=== PATIENT | female | born 1965 | race Caucasian/White ===

== ENCOUNTER 2021-12-07 11:15 | Inpatient (IN) | payer MEDICARE, OTHER ==
--- NOTE | 2021-12-07 11:44 | ED ---
General Adult HPI - General Chief complaint: Altered Mental Status Stated complaint: altered mental status Time Seen by Provider: 12/07/21 11:23 Source: EMS, RN notes reviewed, Caregiver Mode of arrival: EMS Limitations: no limitations - History of Present Illness Initial comments: Patient is a pleasant 56-year-old female presenting with caregiver with concerns for change in mental status. Symptoms started yesterday morning. Symptoms have progressively worsened since that time. Patient has baseline disability including being nonverbal. Patient normally is able to walk and be at herself as well as do sign language for her name and stating when she is hungry, otherwise limited. Patient is no longer able to any communication. Patient is not able to walk on her own. Patient did have a fall yesterday morning and had head CT done at [place] and was discharged following that. Symptoms have progressively worsened. Patient is nonverbal and provides no history at this time. 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 - Related Data Home Medications Medication Instructions Recorded Confirmed Atorvastatin Calcium [Lipitor] 20 mg PO HS 12/07/21 12/07/21 FLUoxetine HCL [PROzac] 40 mg PO DAILY 12/07/21 12/07/21 Haloperidol 1 mg PO BID PRN 12/07/21 12/07/21 Lactose-Reduced Food [Ensure 1 can PO DAILY 12/07/21 12/07/21 Original] clonazePAM 0.5 mg PO TID 12/07/21 12/07/21 polyethylene glycoL 3350 [Miralax] 17 gm PO HS 12/07/21 12/07/21 risperiDONE [RisperDAL] 1.5 mg PO DAILY 12/07/21 12/07/21 risperiDONE [RisperDAL] 3 mg PO HS 12/07/21 12/07/21 Allergies Allergy/AdvReac Type Severity Reaction Status Date / Time No Known Allergies Allergy Verified 12/07/21 12:45 Review of Systems ROS Statement: Those systems with pertinent positive or pertinent negative responses have been documented in the HPI. ROS Other: All systems not noted in ROS Statement are negative. 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 Does not follow commands.) Head exam: Present: atraumatic, normocephalic Eye exam: Present: normal appearance, PERRL ENT exam: Present: normal oropharynx Neck exam: Present: normal inspection. Absent: tenderness Respiratory exam: Present: normal lung sounds bilaterally Cardiovascular Exam: Present: regular rate, normal rhythm GI/Abdominal exam: Present: soft. Absent: tenderness Extremities exam: Present: normal inspection Neurological exam: Present: alert, altered Expanded Neurological exam: Present: protecting the airway, other (Limited exam. Does not follow commands. Strength testing is very limited) Speech: Present: total aphasia Motor strength exam: RUE: 2/1, LUE: 5, RLE: 2/1, LLE: 5 Eye Response: (4) open spontaneously Motor Response: (5) localizes to pain Verbal Response: (1) no verbal response Psychiatric exam: Present: flat affect Skin exam: Present: normal color Course Vital Signs 12/07/21 11:21 Temperature 98.5 F Pulse Rate 106 H Respiratory 18 Rate Blood Pressure 115/74 O2 Sat by Pulse 96 Oximetry - Reevaluation(s) Reevaluation #1: 12/07/21 13:06 Patient reevaluated. Ink Printer updated. Case was discussed with Dr. Fay who would like patient noted in stroke robot. He would also like CTA EKG Findings - EKG Comments: EKG Findings:: Sinus tachycardia rate 112. KS 1:30. QRS 90. QT 378. QTC 515. Right axis. RVH. Inferior T wave inversion. Medical Decision Making - Medical Decision Making Patient reevaluated and unchanged. Ink Printer updated. Case discussed with Dr. Price, who will admit covering hospital call. - Lab Data Result diagrams: 12/07/21 11:58 12/07/21 11:58 Lab Results 12/07/21 12/07/21 12/07/21 Range/Units 11:58 11:58 11:58 WBC 11.9 H (3.8-10.6) k/uL RBC 4.57 (3.80-5.40) m/uL Hgb 13.8 (11.4-16.0) gm/dL Hct 40.8 (34.0-46.0) % MCV 89.1 (80.0-100.0) fL MCH 30.1 (25.0-35.0) pg MCHC 33.8 (31.0-37.0) g/dL RDW 13.2 (11.5-15.5) % Plt Count 185 (150-450) k/uL MPV 7.1 Neutrophils % 86 % Lymphocytes % 5 % Monocytes % 8 % Eosinophils % 0 % Basophils % 0 % Neutrophils # 10.2 H (1.3-7.7) k/uL Lymphocytes # 0.6 L (1.0-4.8) k/uL Monocytes # 0.9 (0-1.0) k/uL Eosinophils # 0.0 (0-0.7) k/uL Basophils # 0.0 (0-0.2) k/uL PT 10.3 (9.0-12.0) sec INR 1.0 (<1.2) APTT 20.7 L (22.0-30.0) sec Sodium 136 L (137-145) mmol/L Potassium 3.3 L (3.5-5.1) mmol/L Chloride 106 (98-107) mmol/L Carbon Dioxide 25 (22-30) mmol/L Anion Gap 5 mmol/L BUN 12 (7-17) mg/dL Creatinine 0.45 L (0.52-1.04) mg/dL Est GFR (CKD-EPI)AfAm >90 (>60 ml/min/1.73 sqM) Est GFR (CKD-EPI)NonAf >90 (>60 ml/min/1.73 sqM) Glucose 105 H (74-99) mg/dL Calcium 8.9 (8.4-10.2) mg/dL Total Bilirubin 3.1 H (0.2-1.3) mg/dL AST 30 (14-36) U/L ALT 41 H (4-34) U/L Alkaline Phosphatase 75 (38-126) U/L Troponin I (0.000-0.034) ng/mL Total Protein 6.1 L (6.3-8.2) g/dL Albumin 3.4 L (3.5-5.0) g/dL 12/07/21 Range/Units 11:58 WBC (3.8-10.6) k/uL RBC (3.80-5.40) m/uL Hgb (11.4-16.0) gm/dL Hct (34.0-46.0) % MCV (80.0-100.0) fL MCH (25.0-35.0) pg MCHC (31.0-37.0) g/dL RDW (11.5-15.5) % Plt Count (150-450) k/uL MPV Neutrophils % % Lymphocytes % % Monocytes % % Eosinophils % % Basophils % % Neutrophils # (1.3-7.7) k/uL Lymphocytes # (1.0-4.8) k/uL Monocytes # (0-1.0) k/uL Eosinophils # (0-0.7) k/uL Basophils # (0-0.2) k/uL PT (9.0-12.0) sec INR (<1.2) APTT (22.0-30.0) sec Sodium (137-145) mmol/L Potassium (3.5-5.1) mmol/L Chloride (98-107) mmol/L Carbon Dioxide (22-30) mmol/L Anion Gap mmol/L BUN (7-17) mg/dL Creatinine (0.52-1.04) mg/dL Est GFR (CKD-EPI)AfAm (>60 ml/min/1.73 sqM) Est GFR (CKD-EPI)NonAf (>60 ml/min/1.73 sqM) Glucose (74-99) mg/dL Calcium (8.4-10.2) mg/dL Total Bilirubin (0.2-1.3) mg/dL AST (14-36) U/L ALT (4-34) U/L Alkaline Phosphatase (38-126) U/L Troponin I <0.012 (0.000-0.034) ng/mL Total Protein (6.3-8.2) g/dL Albumin (3.5-5.0) g/dL - Radiology Data Radiology results: image reviewed (CT brain is discussed with radiologist shows concern for left MCA thrombus and subacute infarct. Chest x-ray shows cardiac megaly with mild central vascular congestion.) Disposition Clinical Impression: CVA (cerebral vascular accident) Disposition: ADMITTED IP TO THIS HOSP Is patient prescribed a controlled substance at d/c from ED?: No Referrals: Jenelle Forrest DO [Primary Care Provider] - 1-2 days Decision Time: 13:40
--- NOTE | 2021-12-07 12:35 | XR ---
EXAMINATION TYPE: XR chest 1V portable DATE OF EXAM: 12/07/2021 COMPARISON: NONE HISTORY: Altered mental status and weakness. TECHNIQUE: Single frontal view of the chest is obtained. FINDINGS: Cardiac silhouette size is mildly enlarged. No suspicious focal airspace opacity, pleural effusion, or pneumothorax seen bilaterally. Cannot exclude mild central vascular congestion. Underlyi ng scoliotic curvature or positioning is noted. IMPRESSION: Mild cardiomegaly with perhaps mild central vascular congestion. Correlate clinically.
[2021-12-07 12:36] LABS: Basophils % (A) 0 %; Eosinophils % (A) 0 %; HCT 40.8 % (34.0-46.0); HGB 13.8 gm/dL (11.4-16.0); Lymphocytes # (A) 0.6 k/uL (1.0-4.8); Lymphocytes % (A) 5 %; MCH 30.1 pg (25.0-35.0); MCHC 33.8 g/dL (31.0-37.0); MCV 89.1 fL (80.0-100.0); Mean Platelet Volume 7.1; Monocytes # (A) 0.9 k/uL (0-1.0); Monocytes % (A) 8 %; Neutrophils # (A) 10.2 k/uL (1.3-7.7); Neutrophils % (A) 86 %; Platelet Count 185 k/uL (150-450); RBC 4.57 m/uL (3.80-5.40); RDW 13.2 % (11.5-15.5); WBC 11.9 k/uL (3.8-10.6)
[2021-12-07 12:38] LABS: ALT 41 U/L (4-34); AST 30 U/L (14-36); African American GFR (CKD) >90 (>60 ml/min/1.73 sqM); Albumin 3.4 g/dL (3.5-5.0); Alkaline Phosphatase 75 U/L (38-126); Anion Gap 5 mmol/L; Blood Urea Nitrogen 12 mg/dL (7-17); Calcium 8.9 mg/dL (8.4-10.2); Carbon Dioxide 25 mmol/L (22-30); Chloride 106 mmol/L (98-107); Glucose 105 mg/dL (74-99); Non-African American GFR(CKD) >90 (>60 ml/min/1.73 sqM); Potassium 3.3 mmol/L (3.5-5.1); Sodium 136 mmol/L (137-145); Total Bilirubin 3.1 mg/dL (0.2-1.3); Total Protein 6.1 g/dL (6.3-8.2)
--- NOTE | 2021-12-07 12:40 | CT ---
EXAMINATION TYPE: CT brain wo con DATE OF EXAM: 12/07/2021 HISTORY: altered mental status post fall CT DLP: 1172.4 mGycm. Automated Exposure Control for Dose Reduction was Utilized. TECHNIQUE: CT scan of the head is performed without contrast. COMPARISON: None. FINDINGS: There is no acute intracranial hemorrhage or midline shift identified. There is mild diff use ventricular and sulcal prominence consistent with mild diffuse age-related cerebral atrophy. Vagu e low attenuation with sulcal effacement in the left frontal parietal lobe MCA distribution is consis tent with evolving acute/subacute infarct.. Area of involvement roughly 5 cm in size AP and crani[place] mya dimension sagittal image 35. Hyperdense artery sign in the distal left MCA noted axial image 9 an d 10 corresponding to coronal image 26. Dependent fluid in the right sphenoid sinus. Globes are intac t bilaterally. IMPRESSION: Evolving acute/subacute infarct due to thrombus distal left middle cerebral artery involv ing frontal and parietal lobes. Case discussed with ordering ER physician via telephone at time of dictation. A Document Only message has been documented for Dax Grier DO in the [employer] system on 12/07/2021 12:37 PM, Message ID [id number].
[2021-12-07 12:45] LABS: Prothrombin Time 10.3 sec (9.0-12.0)
[2021-12-07 12:50] LABS: Partial Thromboplastin Time 20.7 sec (22.0-30.0)
[2021-12-07] MEDS ORDERED: ASPIRIN 325 MG TAB PO STA (13:40)
[2021-12-07] MEDS ORDERED: NALOXONE 0.4 MG/ML 1 ML VIAL IV PRN (13:44)
[2021-12-07] MEDS ORDERED: POTASSIUM CHLORIDE 10 MEQ in WATER FOR INJECTION 1 100ML.BAG IVPB STA (13:50)
--- NOTE | 2021-12-07 13:54 | P.HPIM ---
History of Present Illness H&P Date: 12/07/21 Chief Complaint: stroke 56-year-old female presenting with caregiver with concerns for right-sided weakness and change in mental status. Symptoms started yesterday morning. Last month patient had covid, was treated with an antibiotic and steroid treatments, she currently has no respiratory symptoms. Patient has baseline disability including being nonverbal. Patient normally is able to walk and be at herself as well as do sign language for her name and stating when she is hungry, otherwise limited. Patient is no longer able to any communication. Patient is not able to walk on her own. Patient did have a fall yesterday morning and had head CT done at [place] and was discharged following that despite having right- sided weakness according to the caregiver. 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 Computed tomography scan done in the emergency department showed evolving acute/subacute infarct due to thrombosis distal left middle cerebral artery involving frontal and parietal lobes. Labs showed WBC count 11.9, sodium 136, calcium 3.3, creatinine 0.45, bilirubin 3.1. Review of Systems Not obtainable secondary to current mental status Past Medical History Additional Past Medical History / Comment(s): mentally delayed History of Any Multi-Drug Resistant Organisms: None Reported Past Surgical History: Unable to Obtain Past Psychological History: Unable to Obtain Smoking Status: Unknown if ever smoked Past Alcohol Use History: Unable to Obtain Past Drug Use History: Unable to Obtain Medications and Allergies Home Medications Medication Instructions Recorded Confirmed Type Atorvastatin Calcium [Lipitor] 20 mg PO HS 12/07/21 12/07/21 History FLUoxetine HCL [PROzac] 40 mg PO DAILY 12/07/21 12/07/21 History Haloperidol 1 mg PO BID PRN 12/07/21 12/07/21 History Lactose-Reduced Food [Ensure 1 can PO DAILY 12/07/21 12/07/21 History Original] clonazePAM 0.5 mg PO TID 12/07/21 12/07/21 History polyethylene glycoL 3350 [Miralax] 17 gm PO HS 12/07/21 12/07/21 History risperiDONE [RisperDAL] 1.5 mg PO DAILY 12/07/21 12/07/21 History risperiDONE [RisperDAL] 3 mg PO HS 12/07/21 12/07/21 History Allergies Allergy/AdvReac Type Severity Reaction Status Date / Time No Known Allergies Allergy Verified 12/07/21 12:45 Physical Exam Vitals: Vital Signs Temp Pulse Resp BP Pulse Ox 12/07/21 11:21 98.5 F 106 H 18 115/74 96 Intake and Output 12/06/21 12/07/21 12/07/21 22:59 06:59 14:59 Other: Weight 47.627 kg Constitutional: No acute distress, patient is not verbal Eyes:Anicteric sclerae, moist conjunctiva, no lid-lag, PERRLA, ENMT: Oropharynx clear, no erythema, exudates Neck: Supple, FROM, no masses, or JVD, No carotid bruits, No thyromegaly Lungs: Clear to auscultation, Clear to percussion, Normal respiratory effort, no accessory muscle use Cardiovascular: Heart regular in rate and rhythm, No murmurs, gallops, or rubs, No peripheral edema Abdominal: Soft, Nontender, no guarding, rebound or rigidity, Normoactive bowel sounds, No hepatomegaly, No splenomegaly, No palpable mass Skin: Normal temperature, tone, texture, turgor, no induration, No subcutaneous nodules, No rash, lesions, No ulcers Extremities: No digital cyanosis, No clubbing, Pedal pulses intact and symmetrical, Radial pulses intact and symmetrical, No calf tenderness Psychiatric: Unable to assess, patient nonverbal Neuro: Right-sided weakness Results CBC & Chem 7: 12/07/21 11:58 12/07/21 11:58 Labs: Abnormal Lab Results - Last 24 Hours (Table) 12/07/21 12/07/21 12/07/21 Range/Units 11:58 11:58 11:58 WBC 11.9 H (3.8-10.6) k/uL Neutrophils # 10.2 H (1.3-7.7) k/uL Lymphocytes # 0.6 L (1.0-4.8) k/uL APTT 20.7 L (22.0-30.0) sec Sodium 136 L (137-145) mmol/L Potassium 3.3 L (3.5-5.1) mmol/L Creatinine 0.45 L (0.52-1.04) mg/dL Glucose 105 H (74-99) mg/dL Total Bilirubin 3.1 H (0.2-1.3) mg/dL ALT 41 H (4-34) U/L Total Protein 6.1 L (6.3-8.2) g/dL Albumin 3.4 L (3.5-5.0) g/dL Assessment and Plan Plan: Acute CVA Patient started on aspirin, Serious discussed with stroke neurologist, patient is not a candidate for TPN as symptoms have been more than 24 hours Consult neurology Consult speech therapy and PT Echocardiogram and CT angiogram of the head and neck. Hypokalemia Replace Follow in a.m. Right foot deformity X-ray of the right ankle and right foot According to the caregiver patient is a full code, she does have a guardian. Admit to inpatient, expected length of stay more than 2 midnights
--- NOTE | 2021-12-07 14:06 | CT ---
EXAMINATION TYPE: CT angio head neck DATE OF EXAM: 12/07/2021 HISTORY: abnormal prior COMPARISON: CT brain earlier today. CT DLP: 260.7 mGycm. Automated Exposure Control for Dose Reduction was Utilized. TECHNIQUE: CTA scan of the head and neck are performed with IV Contrast, patient injected with 65 mL of Isovue 370, axial images are obtained, coronal and sagittal reformatted images are reviewed. 3D r econstructed images are created on an independent workstation and reviewed. FINDINGS: Carotid/Vascular Structures: There is four-vessel origin from aortic arch which is normal variant. No significant plaque or stenosis. Normal origin right common carotid artery from right brachiocephalic artery. No significant plaque or stenosis in the common or internal carotid arteries bilaterally inc luding at level of carotid bulbs. Patent bilateral external carotid arteries without significant sten osis. Vertebral arteries are patent to basilar junction. Right-sided artery is dominant. Patent right poste rior communicating artery. Hypoplastic left posterior communicating artery. No significant focal sten osis or aneurysm in the posterior circulation. Anterior circulation shows hypoplastic right A1 segment with filling of the A2 segment due to patent anterior communicating artery. No aneurysm is present. Small thrombus in the distal left middle cereb ral artery distribution on noncontrast CT more difficult to distinctly visualize on CT images as raw data imaging not sent to PACS and is felt to smaller caliber vessel past the MCA trifurcation. Other: Exaggerated cervical curvature. Underlying scoliosis or positioning. IMPRESSION: 1. No significant stenosis in common or internal carotid arteries bilaterally. 2. Suspected acute thrombus left middle cerebral artery distribution is likely past trifurcation is n ot well seen on CTA images provided as detailed above. No aneurysm at level of the [place]. NASCET criteria was used in interpretation of this exam?
--- NOTE | 2021-12-07 14:26 | XR ---
EXAMINATION TYPE: XR foot complete RT DATE OF EXAM: 12/07/2021 COMPARISON: NONE HISTORY: Pain TECHNIQUE: 3 views FINDINGS: Metatarsals are intact. I see no fracture nor dislocation. Joint spaces are fairly normal. There are no erosions. IMPRESSION: Negative right foot exam.
--- NOTE | 2021-12-07 14:27 | XR ---
EXAMINATION TYPE: XR ankle complete RT DATE OF EXAM: 12/07/2021 COMPARISON: NONE HISTORY: Fall. Pain TECHNIQUE: 3 views FINDINGS: Ankle mortise is anatomic. There is no sign of fracture or dislocation. Joint spaces are fa irly normal. IMPRESSION: Negative right ankle exam.
[2021-12-07] MEDS: SODIUM CHLORIDE 0.9% 1,000 ML IV SCH (23:18)
[2021-12-08] MEDS: SODIUM CHLORIDE 0.9% 1,000 ML IV SCH ×3 (00:05→19:51)
[2021-12-08 06:25] LABS: Basophils % (A) 0 %; Eosinophils # (A) 0.1 k/uL (0-0.7); Eosinophils % (A) 1 %; HCT 40.5 % (34.0-46.0); HGB 13.1 gm/dL (11.4-16.0); Lymphocytes # (A) 0.6 k/uL (1.0-4.8); Lymphocytes % (A) 6 %; MCH 30.4 pg (25.0-35.0); MCHC 32.3 g/dL (31.0-37.0); Monocytes # (A) 0.8 k/uL (0-1.0); Monocytes % (A) 8 %; Neutrophils # (A) 8.2 k/uL (1.3-7.7); Neutrophils % (A) 84 %; Platelet Count 152 k/uL (150-450); RDW 13.3 % (11.5-15.5); WBC 9.7 k/uL (3.8-10.6)
[2021-12-08 06:36] LABS: ALT 31 U/L (4-34); AST 23 U/L (14-36); African American GFR (CKD) >90 (>60 ml/min/1.73 sqM); Albumin 2.9 g/dL (3.5-5.0); Alkaline Phosphatase 61 U/L (38-126); Anion Gap 5 mmol/L; Blood Urea Nitrogen 13 mg/dL (7-17); Calcium 8.5 mg/dL (8.4-10.2); Carbon Dioxide 24 mmol/L (22-30); Chloride 109 mmol/L (98-107); Glucose 84 mg/dL (74-99); Magnesium 2.1 mg/dL (1.6-2.3); Non-African American GFR(CKD) >90 (>60 ml/min/1.73 sqM); Phosphorus 3.3 mg/dL (2.5-4.5); Potassium 3.5 mmol/L (3.5-5.1); Sodium 138 mmol/L (137-145); Total Bilirubin 2.6 mg/dL (0.2-1.3); Total Protein 5.3 g/dL (6.3-8.2)
[2021-12-08 09:52] LABS: Chol/HDL Ratio 2.45 Ratio; LDL Cholesterol,Calculated 59.3 mg/dL (0.0-131.0); VLDL Calculation 19.92 mg/dL (5.00-40.00)
--- NOTE | 2021-12-08 10:13 | P.PN ---
Subjective Progress Note Date: 12/08/21 Principal diagnosis: right sided weakness Patient still the same. Still with right sided weakness, no significant improvement. No overnight issues. Objective - Vital Signs Vital signs: Vital Signs Temp 98.7 F 12/08/21 03:00 Pulse 67 12/08/21 07:00 Resp 16 12/08/21 07:00 BP 100/73 12/08/21 07:00 Pulse Ox 96 12/08/21 07:00 Intake & Output 12/07/21 12/08/21 12/08/21 18:59 06:59 18:59 Weight 47.627 kg - Exam Constitutional: No acute distress, patient is not verbal Eyes:Anicteric sclerae, moist conjunctiva, no lid-lag, PERRLA, ENMT: Oropharynx clear, no erythema, exudates Neck: Supple, FROM, no masses, or JVD, No carotid bruits, No thyromegaly Lungs: Clear to auscultation, Clear to percussion, Normal respiratory effort, no accessory muscle use Cardiovascular: Heart regular in rate and rhythm, No murmurs, gallops, or rubs, No peripheral edema Abdominal: Soft, Nontender, no guarding, rebound or rigidity, Normoactive bowel sounds, No hepatomegaly, No splenomegaly, No palpable mass Skin: Normal temperature, tone, texture, turgor, no induration, No subcutaneous nodules, No rash, lesions, No ulcers Extremities: No digital cyanosis, No clubbing, Pedal pulses intact and symmetrical, Radial pulses intact and symmetrical, No calf tenderness Psychiatric: Unable to assess, patient nonverbal Neuro: Right-sided weakness - Labs CBC & Chem 7: 12/08/21 06:01 12/08/21 06:01 Labs: Abnormal Lab Results - Last 24 Hours (Table) 12/07/21 12/07/21 12/07/21 Range/Units 11:58 11:58 11:58 WBC 11.9 H (3.8-10.6) k/uL Neutrophils # 10.2 H (1.3-7.7) k/uL Lymphocytes # 0.6 L (1.0-4.8) k/uL APTT 20.7 L (22.0-30.0) sec Sodium 136 L (137-145) mmol/L Potassium 3.3 L (3.5-5.1) mmol/L Chloride (98-107) mmol/L Creatinine 0.45 L (0.52-1.04) mg/dL Glucose 105 H (74-99) mg/dL Total Bilirubin 3.1 H (0.2-1.3) mg/dL ALT 41 H (4-34) U/L Total Protein 6.1 L (6.3-8.2) g/dL Albumin 3.4 L (3.5-5.0) g/dL Coronavirus (PCR) (Not Detectd) 12/08/21 12/08/21 12/08/21 Range/Units 02:03 06:01 06:01 WBC (3.8-10.6) k/uL Neutrophils # 8.2 H (1.3-7.7) k/uL Lymphocytes # 0.6 L (1.0-4.8) k/uL APTT (22.0-30.0) sec Sodium (137-145) mmol/L Potassium (3.5-5.1) mmol/L Chloride 109 H (98-107) mmol/L Creatinine 0.43 L (0.52-1.04) mg/dL Glucose (74-99) mg/dL Total Bilirubin 2.6 H (0.2-1.3) mg/dL ALT (4-34) U/L Total Protein 5.3 L (6.3-8.2) g/dL Albumin 2.9 L (3.5-5.0) g/dL Coronavirus (PCR) Detected A (Not Detectd) Assessment and Plan Plan: Acute CVA with CT angiogram of the head and neck showing thrombus in the left MCA Patient started on aspirin, Serious discussed with stroke neurologist, patient is not a candidate for TPN as symptoms have been more than 24 hours Consult neurology Consult speech therapy and PT Echocardiogram Hypokalemia Replaced Covid + Patient was recently treated for covid last month, currently no symptoms. According to the caregiver patient is a full code, she does have a guardian. Anticipated discharge: 2 days Dispo: rehab
[2021-12-08] MEDS: ASPIRIN 325 MG TAB PO SCH (10:21)
--- NOTE | 2021-12-08 11:31 | ECHOF ---
Referral Reason:Thrombus MEASUREMENTS -------- HEIGHT: 162.6 cm WEIGHT: 47.6 kg BP: 112/80 RVIDd: 4.1 cm (< 3.3) IVSd: 1.0 cm (0.6 - 1.1) LVIDd: 3.8 cm (3.9 - 5.3) LVPWd: 1.0 cm (0.6 - 1.1) IVSs: 1.5 cm LVIDs: 2.1 cm LVPWs: 1.7 cm Ao Diam: 2.4 cm (2.0 - 3.7) AV Cusp: 1.4 cm (1.5 - 2.6) LA Diam: 3.6 cm (2.7 - 3.8) AR PHT: 426 ms RAP: 5.00 mmHg RVSP: 60.23 mmHg FINDINGS -------- This was a technically adequate study. The left ventricular size is normal. Left ventricular wall thickness is normal. Overall left vent ricular systolic function is low-normal with, an EF between 50 - 55 %. The right ventricle is severely enlarged. The left atrial size is normal. The right atrium is moderately enlarged. Mobile interatrial septum. There is mild aortic regurgitation. There is no evidence of aortic stenosis. The mitral valve was not well visualized. No mitral regurgitation. There is severe pulmonary hypertension. The right ventricular systolic pressure, as measured by Dop pler, is 60.23mmHg. The pulmonic valve was not well visualized. The aortic root size is normal. IVC Not well visulized. There is a trivial pericardial effusion present. CONCLUSIONS -------- 1. The left ventricular size is normal. 2. Left ventricular wall thickness is normal. 3. Overall left ventricular systolic function is low-normal with, an EF between 50 - 55 %. 4. The right ventricle is severely enlarged. 5. The right atrium is moderately enlarged. 6. Mobile interatrial septum. 7. There is mild aortic regurgitation. 8. There is severe pulmonary hypertension. 9. The right ventricular systolic pressure, as measured by Doppler, is 60.23mmHg. 10. There is a trivial pericardial effusion present. TILE MOLDER: Jaki Bernard [facility]
[2021-12-08 14:34] VITALS: BMI 18.0
--- NOTE | 2021-12-08 15:53 | P.CNNES ---
History of Present Illness Consult date: 12/08/21 Requesting physician: Dax Grier Reason for Consult: CVA History of Present Illness: Patient is a 56-year-old female who came to the hospital by ambulance yesterday at 1:41 PM. According to EMS flow sheet, when they arrived, patient was laying on the couch alert to her normal. Patient is nonverbal with extensive psyc hiatric history, per staff patient has not been acting herself since yesterday (11/05/2021). It was reported patient can normally eat, bathe and use the restroom without assistance. Patient normally signs to communicate. Staff reports the patient has needed assistance with her ADLs. Patient was evaluated the day prior at [facility] for a fall. She received a computed tomography scan of the head and was subsequently discharged back to the senior care with no significant findings. Staff reported the patient's condition has not improved or worsened since being seen in the ER. Patient also had history of zmabrano virus several months ago. Two-lifted patient to the stretcher. Patient's vitals at the scene was blood pressure 106/73, pulse rate 106, respiration 30, saturation 91% on room air and blood glucose 124. Temperature 98.6. Vital signs on arrival blood pressure 115/74, pulse is 106, temperature 98.5. Computed tomography scan of the head showed evolving acute/subacute infarct due to thrombus distal left middle cerebral artery involving frontal and parietal lobes. I personally reviewed computed tomography scan and agree with the findings. No hemorrhage. CTA of the head and neck showed no significant stenosis in the common or internal carotid arteries bilaterally. Suspected acute thrombus left middle cerebral artery distribution is likely past trifurcation is not well seen on CTA images provided. No aneurysm at the level of [place]. Chest x-ray showed mild Cardiomegaly with perhaps mild central vascular congestion. EKG shows sinus tachycardia, right axis deviation. Right ventricular hypertrophy. Right foot and ankle x-ray negative for fractur e. Patient has received aspirin 325 mg in the ER. Patient's home medications include Risperdal 1.5 mg in the morning and 3 mg at bedtime, Prozac 40 mg, MiraLAX, Haldol 1 mg twice a day when necessary, clonazepam 0.5 mg 3 times a day, Lipitor 20 mg at bedtime. Patient was not on any antiplatelet medication at home. Patient was seen in the ER. Patient not able to provide any history. She is mu te. She does make eye contact, does follow some commands as per examination. Review of Systems ROS unobtainable: due to mental status Past Medical History Additional Past Medical History / Comment(s): mentally delayed History of Any Multi-Drug Resistant Organisms: None Reported Past Surgical History: Unable to Obtain Past Psychological History: Unable to Obtain Smoking Status: Unknown if ever smoked Past Alcohol Use History: Unable to Obtain Past Drug Use History: Unable to Obtain Medications and Allergies Home Medications Medication Instructions Recorded Confirmed Type Atorvastatin Calcium [Lipitor] 20 mg PO HS 12/07/21 12/07/21 History FLUoxetine HCL [PROzac] 40 mg PO DAILY 12/07/21 12/07/21 History Haloperidol 1 mg PO BID PRN 12/07/21 12/07/21 History Lactose-Reduced Food [Ensure 1 can PO DAILY 12/07/21 12/07/21 History Original] clonazePAM 0.5 mg PO TID 12/07/21 12/07/21 History polyethylene glycoL 3350 [Miralax] 17 gm PO HS 12/07/21 12/07/21 History risperiDONE [RisperDAL] 1.5 mg PO DAILY 12/07/21 12/07/21 History risperiDONE [RisperDAL] 3 mg PO HS 12/07/21 12/07/21 History Allergies Allergy/AdvReac Type Severity Reaction Status Date / Time No Known Allergies Allergy Verified 12/07/21 12:45 Physical Examination - Vital Signs Vital Signs: Vital Signs Temp Pulse Resp BP Pulse Ox 12/08/21 07:00 67 16 100/73 96 12/08/21 03:00 98.7 F 90 22 112/80 96 12/08/21 01:57 98.7 F 91 18 109/74 95 12/07/21 23:00 93 18 108/71 95 12/07/21 17:00 92 18 126/83 100 12/07/21 11:21 98.5 F 106 H 18 115/74 96 Patient is a middle aged female, who appears older than her stated age. Patient is alert awake, with slow mentation, does follow some commands. Patient in mild respiratory distress. Patient not able to speak any words, could not repeat. Attention, concentration and fund of knowledge is very limited even at baseline. Patient apparently uses sign language. She is mentally delayed. At present she is not using any sign language. On cranial examination, pupils are round and reacting to light, visual mosqueda revealed patient blinks to visual threat bilaterally. Her extraocular muscles are intact with no nystagmus. Face is symmetric, she did not protrude her tongue. Could not check lower cranial nerves. On muscle strength testing, patient moves her arms, appears to have right pronator drift. She does hold her arm up, but slowly brings it down. Patient biceps appears equal. 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 In the lower extremities, patient would hold both legs up off the bed, but slightly droops the right leg faster as compared to the left. Patient has relative weakness of the right hand and the foot as compared to proximally. Deep tendon reflexes are 2+ and plantars are upgoing bilaterally. Sensory to touch could not be assessed. Cerebellar function could not be tested.. Tone of muscles normal, but bulk of muscles is overall decreased. Gait not checked. On general examination, there is no carotid bruit or murmur, S1-S2 audible. Abdomen is soft nontender, no organomegaly. Chest is clear. No cyanosis. Patient does have multiple bruises in her lower extremities. No edema. Results - Laboratory Findings CBC and BMP: 12/08/21 06:01 12/08/21 06:01 Abnormal Lab Findings: Abnormal Labs 12/07/21 12/07/21 12/07/21 11:58 11:58 11:58 WBC 11.9 H Neutrophils # 10.2 H Lymphocytes # 0.6 L APTT 20.7 L Sodium 136 L Potassium 3.3 L Chloride Creatinine 0.45 L Glucose 105 H Total Bilirubin 3.1 H ALT 41 H Total Protein 6.1 L Albumin 3.4 L Coronavirus (PCR) 12/08/21 12/08/21 12/08/21 02:03 06:01 06:01 WBC Neutrophils # 8.2 H Lymphocytes # 0.6 L APTT Sodium Potassium Chloride 109 H Creatinine 0.43 L Glucose Total Bilirubin 2.6 H ALT Total Protein 5.3 L Albumin 2.9 L Coronavirus (PCR) Detected A Assessment and Plan Assessment: * Acute to subacute ischemic stroke involving the left MCA vascular territory, due to thrombus distal left MCA. Patient is mute, and with mild right hemiparesis. Patient is nonverbal at baseline, uses sign language. * Acute Covid-19 infection. * Chronic psych history * Mentally delayed. Plan: * Computed tomography scan of the head confirmed acute CVA in the left MCA vascular territory. * Patient also has a thrombus in the left MCA. Patient was considered not a candidate for thrombectomy. I spoke to Dr. Dax Grier, ED physician, who had spoken to Dr. Grewal about the results, and apparently Dr. Grewal did not elect for patient to be transferred. I spoke to Dr. Grewal, who states that patient was not a candidate for thrombectomy because she already has infarcted. It involved distal M2 segment. * We will place patient on dual antiplatelet medication. * 2-D echo revealed normal left ventricular size. Normal left-ventricular wall thickness. Overall left-ventricular systolic function is low normal with EF between 50-5%. Right ventricle is severely enlarged. Mobile interatrial septum. Mild AR. Severe pulmonary hypertension. Cardiology seen the patient. They recommended a limited 2-D with bubble study. Agreed with dual antiplatelet therapy therapy * Lipid panel with cholesterol 134, LDL 59, HDL 54 and triglycerides 99. Lipids are well controlled. No indication for statins. * Speech and swallow evaluation * DVT prophylaxis. We will start heparin 5000 units subcu every 12 hours. * PT OT * Telemetric monitoring showing sinus rhythm with sinus tachycardia in 130s, so me PVCs and PACs. * Blood pressure well controlled, running 103/70. Patient not on any blood pressure medication. * Treatments of other medical conditions as per IM.
[2021-12-08] MEDS: CLOPIDOGREL 75 MG TAB PO SCH (16:32)
[2021-12-08] MEDS: HEPARIN SODIUM,PORCINE/PF 5,000 UNIT/0.5 ML SYRINGE SQ SCH (19:51)
[2021-12-09] MEDS: SODIUM CHLORIDE 0.9% 1,000 ML IV SCH ×2 (03:54→17:04)
[2021-12-09] MEDS: CLOPIDOGREL 75 MG TAB PO SCH (09:02)
[2021-12-09] MEDS: ASPIRIN 325 MG TAB PO SCH (09:02)
[2021-12-09] MEDS: HEPARIN SODIUM,PORCINE/PF 5,000 UNIT/0.5 ML SYRINGE SQ SCH ×2 (09:02→21:59)
--- NOTE | 2021-12-09 12:06 | P.CRDCN ---
History of Present Illness History of present illness: HISTORY OF PRESENTING ILLNESS This is a pleasant 56-year-old female past medical history significant for mental disability, baseline nonverbal, extensive psychiatric history, dyslipidemia. She does not follow a methods study analyst. We have been asked to see in consultation for mobile interarterial septum seen on echocardiogram.. Patient presents emergency department on 12/07/2020 was brought in by caregivers due to concern for change in mental status. Patient normally can walk by herself, commu nicates with minimal sign language. Staff noted that patient was not communicating, not able to walk on her own. She did have a fall, had a CT at [facility] and was discharged. Neurology is following for CVA. Patient with no known history of coronary artery disease, [place], previous stroke, diabetes, hypertension. CT brain revealed evolving acute/subacute infarct due to thrombus distal left middle cerebral artery involving the frontal and parietal lobes. She was also found to be covid-19 positive DIAGNOSTICS EKG on admission reveals sinus tachycardia, T wave inversions in leads III and aVF, right axis deviation, incomplete right bundle branch block. No prior EKG to compare. Telemetry tracings indicate sinus mechanism, [id number]. Patient was sinus tachycardic in the 120s overnight and remained in sinus mechanism no arrhythmia noted Chest xray mild cardiomegaly. Echocardiogram revealed EF 5055 percent, RV severely enlarged, multiple interarterial septum, mild aortic regurgitation, severe pulmonary hypertension with an RVSP of [address] angiogram of head and neck revealed no significant stenosis. Suspect acute post left middle cerebral artery. No aneurysm at the level [place]. Laboratory reviewed, Covid-19 Positive, WBC 9.7, hemoglobin 12.1, platelets 152, sodium 138, potassium 3.5, BUN 13, Serevent 0.4, magnesium 2.1, troponin negative, triglycerides 99, cholesterol 134, LDL 59, HR 54 Current home medications include Risperdal, clonazepam, haloperidol, atorvastat in 20 mg nightly, Prozac. REVIEW OF SYSTEMS At the time of my exam: Patient unable to give accurate review of systems PHYSICAL EXAMINATION Blood pressure 103/70, heart rate 89, afebrile, oxygen saturation is 98% on 4 L nasal cannula CONSTITUTIONAL: No apparent distress. HEENT: Neck Supple. No JVD. No carotid bruit. CHEST EXAMINATION: Lungs are clear to auscultation. No chest wall tenderness is noted on palpation or with deep breathing. HEART EXAMINATION: Regular rate and rhythm. S1, S2 heard. No murmurs, gallops or rub. ABDOMEN: Soft, nontender. Positive bowel sounds. EXTREMITIES: 2+ peripheral pulses, no lower extremity edema and no calf tenderness. NEUROLOGIC EXAMINATION: Patient is awake, not oriented. ASSESSMENT Acute to subacute ischemic stroke involving the left MCA vascular territory, due to thrombus distal left MCA Mobile interatrial septum seen on 2D echocardiogram Covid-19 infection Chronic psychiatric history History mentally delayed PLAN We will obtain a echo with bubble study Patient placed on dual antiplatelet therapy Neurology following Continue cardiac telemetry. Further recommendations based on clinical course Nurse Practitioner note has been reviewed, I agree with a documented findings and plan of care. Patient was seen and examined. Past Medical History Additional Past Medical History / Comment(s): mentally delayed History of Any Multi-Drug Resistant Organisms: None Reported Past Surgical History: Unable to Obtain Smoking Status: Never smoker Medications and Allergies Home Medications Medication Instructions Recorded Confirmed Type Atorvastatin Calcium [Lipitor] 20 mg PO HS 12/07/21 12/07/21 History FLUoxetine HCL [PROzac] 40 mg PO DAILY 12/07/21 12/07/21 History Haloperidol 1 mg PO BID PRN 12/07/21 12/07/21 History Lactose-Reduced Food [Ensure 1 can PO DAILY 12/07/21 12/07/21 History Original] clonazePAM 0.5 mg PO TID 12/07/21 12/07/21 History polyethylene glycoL 3350 [Miralax] 17 gm PO HS 12/07/21 12/07/21 History risperiDONE [RisperDAL] 1.5 mg PO DAILY 12/07/21 12/07/21 History risperiDONE [RisperDAL] 3 mg PO HS 12/07/21 12/07/21 History Allergies Allergy/AdvReac Type Severity Reaction Status Date / Time No Known Allergies Allergy Verified 12/07/21 12:45 Physical Exam Vitals: Vital Signs Temp Pulse Pulse Resp BP BP Pulse Ox 12/09/21 03:20 97.7 F 89 20 107/71 97 12/09/21 01:34 85 12/08/21 23:40 97.6 F 85 20 103/61 95 12/08/21 20:00 87 12/08/21 19:52 97.8 F 87 22 112/74 96 12/08/21 14:51 98.0 F 103 H 20 117/75 94 L 12/08/21 11:00 98.5 F 86 20 114/63 96 Intake and Output 12/08/21 12/09/21 12/09/21 22:59 06:59 14:59 Other: Voiding Method Bedside Commode Bedside Commode Diaper Diaper # Voids 1 3 Weight 47.627 kg Results 12/08/21 06:01 12/08/21 06:01 Lipids 12/08/21 Range/Units 06:01 Triglycerides 99.60 (0.00-149.00) mg/dL Cholesterol 134.00 (0.00-200.00) mg/dL HDL Cholesterol 54.80 (40.00-60.00) mg/dL Cholesterol/HDL Ratio 2.45 Ratio Current Medications Generic Name Dose Route Start Last Admin Trade Name Freq PRN Reason Stop Dose Admin Aspirin 325 mg 12/08/21 09:00 12/09/21 09:02 Aspirin 325 Mg Tab PO 325 mg DAILY UMER Administration Clopidogrel Bisulfate 75 mg 12/08/21 15:45 12/09/21 09:02 Clopidogrel 75 Mg Tab PO 75 mg DAILY UMER Administration Heparin Sodium (Porcine) 5,000 unit 12/08/21 21:00 12/09/21 09:02 Heparin Sodium,Porcine/Pf 5,000 Unit/0.5 Ml Syringe SQ 5,000 unit Q12HR UMER Administration Sodium Chloride 1,000 mls @ 100 mls/hr 12/07/21 13:45 12/09/21 03:54 Saline 0.9% IV 100 mls/hr .Q10H UEMR Administration Naloxone HCl 0.2 mg 12/07/21 13:44 Naloxone 0.4 Mg/Ml 1 Ml Vial IV Q2M PRN Opioid Reversal Intake and Output 12/08/21 12/09/21 12/09/21 22:59 06:59 14:59 Other: Voiding Method Bedside Commode Bedside Commode Diaper Diaper # Voids 1 3 Weight 47.627 kg 12/08/21 06:01 12/08/21 06:01
--- NOTE | 2021-12-09 14:25 | P.PN ---
Subjective Progress Note Date: 12/09/21 Patient was seen for a follow-up. Patient is laying comfortably in the bed. Offers no complaints. Patient continues to be mute. Objective - Vital Signs Vital signs: Vital Signs Temp 98.7 F 12/09/21 11:34 Pulse 89 12/09/21 11:34 Resp 20 12/09/21 11:34 BP 103/70 12/09/21 11:34 Pulse Ox 98 12/09/21 11:34 Intake & Output 12/08/21 12/09/21 12/09/21 18:59 06:59 18:59 Intake Total 240 Balance 240 Weight 47.627 kg Intake: Oral 240 Other: Voiding Method Bedside Commode Bedside Commode Diaper Diaper # Voids 3 - Exam Patient is alert and awake. Patient is mute. She has history of mental delays. Patient has been nonverbal, use sign language. However she is not using any sign language. She has some comprehension. Patient has right facial asymmetry. Patient is right sided weakness, mainly involving the hand in the foot. Pa tient blinks to visual threat bilaterally. Rest of the examination cannot be performed. - Labs CBC & Chem 7: 12/08/21 06:01 12/08/21 06:01 Assessment and Plan Assessment: * Acute to subacute ischemic stroke involving the left MCA vascular territory, due to thrombus distal left MCA. Patient is mute, and with mild right hemiparesis. Patient is nonverbal at baseline, uses sign language. * Acute Covid-19 infection. * Chronic psych history * Mentally delayed. Plan: * Computed tomography scan of the head confirmed acute CVA in the left MCA vascular territory. * Patient also has a thrombus in the left MCA. Patient was considered not a candidate for thrombectomy. I spoke to Dr. Dax Grier, ED physician, who had spoken to Dr. Grewal about the results, and apparently Dr. Grewal did not elect for patient to be transferred. I spoke to Dr. Grewal, who states that patient was not a candidate for thrombectomy because she already has infarcted. It involved distal M2 segment. * Continue dual antiplatelet medication. * 2-D echo revealed normal left ventricular size. Normal left-ventricular wall thickness. Overall left-ventricular systolic function is low normal with EF between 50-5%. Right ventricle is severely enlarged. Mobile interatrial septum. Mild AR. Severe pulmonary hypertension. Cardiology seen the patient. They recommended a limited 2-D with bubble study. Agreed with dual antiplatelet therapy therapy. May need YANELIS as outpatient. * Lipid panel with cholesterol 134, LDL 59, HDL 54 and triglycerides 99. Lipids are well controlled. No indication for statins. * Speech and swallow evaluation * DVT prophylaxis. We will start heparin 5000 units subcu every 12 hours. * PT OT * Telemetric monitoring showing sinus rhythm with sinus tachycardia in 130s, some PVCs and PACs. * Blood pressure well controlled, running 103/70. Patient not on any blood pressure medication. * Treatments of other medical conditions as per IM.
--- NOTE | 2021-12-09 15:01 | P.PN ---
<Jesus Hay - Last Filed: 12/09/21 14:34> Subjective Progress Note Date: 12/09/21 Hospital course: Patient is a 56-year-old female with a past medical history significant for a physical and mental disabilities, psychiatric disorders, and dyslipidemia. Patient is baseline nonverbal and resides in a senior living. She presented to the emergency department on 12/07/21 with reports of right sided weakness. She underwent full evaluation in the emergency department which resulting in diagnosis of acute thrombotic CVA. She was admitted under our services with consultation to neurology. Imaging: -CT brain without contrast revealed evolving acute/subacute infarct due to thrombus distal left cerebral artery involving the frontal and parietal lobes. -EKG revealed sinus tachycardia at 112 bpm with right bundle branch block. -CTA neck showing no significant stenosis and common or internal carotid ar teries -CTA head reports suspected acute thrombus left middle cerebral artery distribution being likely passed trifurcation and not well visualized on CT images. -Echocardiogram revealing an EF of 50-55% with a moderately enlarged right atrium, severely enlarged right ventricle, severe pulmonary hypertension, and a mobile inter-atrial septum. Physical exam: Vital signs reviewed and stable. General: Nontoxic, no acute distress. Appears comfortable. Derm: Skin warm and dry, normal coloration for ethnicity. Head: Atraumatic, normocephalic and symmetric. Eyes: no lid lag, and anicteric sclera Mouth: no lip lesions, mucus membranes moist Cardiovascular: regular rate and rhythm with normal S1S2, Systolic murmur, positive posterior tibial pulses bilaterally, and cap refill < 2 seconds. Lungs: Respirations even, regular, and unlabored on room air. Lungs CTA bilaterally, no rhonchi, no rales, no wheezing, and no accessory muscle usage. Abdominal: soft, nontender to palpation, no guarding, no appreciable organomegaly Ext: No gross muscle atrophy, no edema, no contractures Neuro: Patient awake and alert, nonverbal which is reported baseline. Patient moving all extremities independently did not follow commands. Psych: Alert and awake, but nonverbal. Patient unable to follow commands. 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 -Telemetry monitoring -Speech and language pathology following -Physical and occupational therapy consulted -Neuro checks Mobile interatrial septum Severely enlarged left ventricle Severe pulmonary hypertension -Cardiology consulted secondary to mobile interatrial septum, may consider possible YANELIS inpatient vs outpatient -Heparin for DVT prophylaxis Recent Covid infection -Continues to test positive on PCR for Covid 19 virus -Continue with daily vitamin C, vitamin D, and zinc. Right foot deformity, likely congenital -X-ray right foot and ankle negative for acute process Hypokalemia, resolved History of mental delays, physical disability, and psychiatric disorders -Provide safe and supportive care with assistance and redirection as needed. CODE STATUS: Full code, patient has a guardian DVT prophylaxis: Heparin Discussed with: RN Anticipated discharge date: Clinical course to determine Anticipated discharge place: Back to senior living A total of 40 minutes was spent on the care of this complex patient more than 50% of the time was spent in counseling and care coordination. Objective - Vital Signs Vital signs: Vital Signs Temp 98.5 F 12/09/21 08:00 Pulse 100 12/09/21 08:00 Resp 20 12/09/21 08:00 BP 120/80 12/09/21 08:00 Pulse Ox 96 12/09/21 08:00 Intake & Output 12/08/21 12/09/21 12/09/21 18:59 06:59 18:59 Intake Total 240 Balance 240 Weight 47.627 kg Intake: Oral 240 Other: Voiding Method Bedside Commode Bedside Commode Diaper Diaper # Voids 3 - Labs CBC & Chem 7: 12/08/21 06:01 12/08/21 06:01 <Rosalina Pathak - Last Filed: 12/10/21 08:00> Subjective I reviewed the documentation as provided by the FIDENCIO above, who is the original author of this note. I agree with the documented assessment and plan, with the following changes: none Objective - Vital Signs Vital signs: Vital Signs Temp 98.3 F 12/10/21 04:00 Pulse 72 12/10/21 04:00 Resp 20 12/10/21 04:00 BP 116/73 12/10/21 04:00 Pulse Ox 95 12/10/21 04:00 Intake & Output 12/09/21 12/10/21 12/10/21 18:59 06:59 18:59 Intake Total 1820 Balance 1820 Intake: Intake, IV Titration 800 Amount Sodium Chloride 0.9% 1, 800 000 ml @ 100 mls/hr IV . Q10H [facility] Rx#:[id number] Oral 1020 Other: Voiding Method Bedside Commode Diaper Diaper # Voids 1 - Labs CBC & Chem 7: 12/08/21 06:01 12/08/21 06:01
[2021-12-10] MEDS: SODIUM CHLORIDE 0.9% 1,000 ML IV SCH ×3 (00:22→20:23)
[2021-12-10] MEDS: HEPARIN SODIUM,PORCINE/PF 5,000 UNIT/0.5 ML SYRINGE SQ SCH (08:26)
[2021-12-10] MEDS: ZINC SULFATE 220 MG CAP PO SCH (08:26)
[2021-12-10] MEDS: ASCORBIC ACID 500 MG TAB PO SCH (08:26)
[2021-12-10] MEDS: CHOLECALCIFEROL 125 MCG (5000 IU) TABLET PO SCH (08:26)
[2021-12-10] MEDS: CLOPIDOGREL 75 MG TAB PO SCH (08:26)
[2021-12-10] MEDS ORDERED: ASPIRIN 81 MG PO SCH (09:00)
--- NOTE | 2021-12-10 11:00 | P.PN ---
<Jesus Hay - Last Filed: 12/10/21 13:26> Subjective Progress Note Date: 12/10/21 Hospital course: Patient is a 56-year-old female with a past medical history significant for a physical and mental disabilities, psychiatric disorders, and dyslipidemia. Patient is baseline nonverbal and resides in a custodial. She presented to the emergency department on 12/07/21 with reports of right sided weakness. She underwent full evaluation in the emergency department which resulting in diagnosis of acute thrombotic CVA. She was admitted under our services with consultation to neurology. Echocardiogram revealed a mobile interatrial septum and cardiology was consulted to evaluate for possible PFO. Imaging: -CT brain without contrast revealed evolving acute/subacute infarct due to thrombus distal left cerebral artery involving the frontal and parietal lobes. -EKG revealed sinus tachycardia at 112 bpm with right bundle branch block. -CTA neck showing no significant stenosis and common or internal carotid arteries -CTA head reports suspected acute thrombus left middle cerebral artery distribution being likely passed trifurcation and not well visualized on CT images. -Echocardiogram revealing an EF of 50-55% with a moderately enlarged right atrium, severely enlarged right ventricle, severe pulmonary hypertension, and a mobile inter-atrial septum. Physical exam: Patient seen and fully evaluated at the bedside. Per social work, custodial providers stated that despite patient's physical/mental disabilities and nonverbal baseline, prior to arrival she was able to function independently with most of her ADLs. Currently, patient appears comfortable showing no signs of pain or discomfort. She continues to move all extremities independently, but remains unable to follow any commands. Vital signs reviewed and stable. General: Nontoxic, no acute distress. Appears comfortable. Derm: Skin warm and dry, normal coloration for ethnicity. Head: Atraumatic, normocephalic and symmetric. Eyes: no lid lag, and anicteric sclera Mouth: no lip lesions, mucus membranes moist Cardiovascular: regular rate and rhythm with normal S1S2, Systolic murmur, positive posterior tibial pulses bilaterally, and cap refill < 2 seconds. Lungs: Respirations even, regular, and unlabored on room air. Lungs CTA bilaterally, no rhonchi, no rales, no wheezing, and no accessory muscle usage. Abdominal: soft, nontender to palpation, no guarding, no appreciable organomegaly Ext: No gross muscle atrophy, no edema, no contractures Neuro: Patient awake and alert, nonverbal which is reported baseline. Patient moving all extremities independently did not follow commands. Psych: Alert and awake, but nonverbal. Patient unable to follow commands. 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 -Telemetry monitoring -Speech and language pathology following -Physical and occupational therapy consulted -Neuro checks Mobile interatrial septum Severely enlarged left ventricle Severe pulmonary hypertension -Cardiology consulted secondary to mobile interatrial septum, may consider possible [facility] inpatient vs outpatient -Heparin for DVT prophylaxis Recent Covid infection -Continues to test positive on PCR for Covid 19 virus -Continue with daily vitamin C, vitamin D, and zinc. Right foot deformity, likely congenital -X-ray right foot and ankle negative for acute process Hypokalemia, resolved History of mental delays, physical disability, and psychiatric disorders -Provide safe and supportive care with assistance and redirection as needed. CODE STATUS: Full code, patient has a guardian DVT prophylaxis: Heparin Discussed with: RN. Attempts were made to contact patient's legal guardian King Garcia at the number provided in the chart being [phone], there was no answer and a voicemail was left. Anticipated discharge date: Clinical course to determine Anticipated discharge place: Back to custodial vs nursing home facility A total of 45 minutes was spent on the care of this complex patient more than 50% of the time was spent in counseling and care coordination. Objective - Vital Signs Vital signs: Vital Signs Temp 98.1 F 12/10/21 08:00 Pulse 85 12/10/21 08:00 Resp 18 12/10/21 08:00 BP 128/75 12/10/21 08:00 Pulse Ox 97 12/10/21 08:00 Intake & Output 12/09/21 12/10/21 12/10/21 18:59 06:59 18:59 Intake Total 1820 Balance 1820 Intake: Intake, IV Titration 800 Amount Sodium Chloride 0.9% 1, 800 000 ml @ 100 mls/hr IV . Q[facility]H [facility] Rx#:[id number] Oral 1020 Other: Voiding Method Bedside Commode Diaper Diaper Diaper # Voids 1 - Labs CBC & Chem 7: 12/08/21 06:01 12/08/21 06:01 <Rosalina Pathak - Last Filed: 12/10/21 17:00> Subjective I reviewed the documentation as provided by the FIDENCIO above, who is the original author of this note. I agree with the documented assessment and plan, with the following changes: None Objective - Vital Signs Vital signs: Vital Signs Temp 98.1 F 12/10/21 12:00 Pulse 71 12/10/21 12:00 Resp 18 12/10/21 13:52 BP 109/73 12/10/21 12:00 Pulse Ox 96 12/10/21 12:00 Intake & Output 12/09/21 12/10/21 12/10/21 18:59 06:59 18:59 Intake Total 1820 Balance 1820 Weight 47.627 kg Intake: Intake, IV Titration 800 Amount Sodium Chloride 0.9% 1, 800 000 ml @ 100 mls/hr IV . Q10H [facility] Rx#:[id number] Oral 1020 Other: Voiding Method Bedside Commode Diaper Diaper Diaper # Voids 1 - Labs CBC & Chem 7: 12/08/21 06:01 12/08/21 06:01
--- NOTE | 2021-12-10 11:01 | ECHOF ---
Referral Reason: MEASUREMENTS -------- HEIGHT: 162.6 cm WEIGHT: 47.6 kg BP: FINDINGS -------- Limited bubble Study Contrast study was performed with 1 iv injection of 8 ccs of agitated normal saline at rest. Patent foramen ovale present with right to left shunt. CONCLUSIONS -------- 1. Limited bubble Study 2. Contrast study was performed with 1 iv injection of 8 ccs of agitated normal saline at rest. 3. Patent foramen ovale present with right to left shunt. [employer] SYSTEM[employer] ADMINISTRATOR: Dina Rodríguez RDCS
--- NOTE | 2021-12-10 11:47 | P.PN ---
Subjective This is a pleasant 56-year-old female past medical history significant for mental disability, baseline nonverbal, extensive psychiatric history, dysl ipidemia. 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 We have been asked to see in consultation for mobile interarterial septum seen on echocardiogram.. Patient presents emergency department on 12/07/2020 was brought in by caregivers due to concern for change in mental status. Patient normally can walk by herself, communicates with minimal sign language. Staff noted that patient was not communicating, not able to walk on her own. She did have a fall, had a [facility] at [facility] and was discharged. Neurology is following for CVA. Patient with no known history of coronary artery disease, [place], previous stroke, diabetes, hypertension. DIAGNOSTICS CT brain revealed evolving acute/subacute infarct due to thrombus distal left middle cerebral artery involving the frontal and parietal lobes. She was also found to be covid-19 positive Echocardiogram revealed EF 5055 percent, RV severely enlarged, multiple interarterial septum, mild aortic regurgitation, severe pulmonary hypertension with an RVSP of [address] angiogram of head and neck revealed no significant stenosis. Suspect acute post left middle cerebral artery. No aneurysm at the level [place]. 12/10/21 Patient seen at bedside, no acute distress. Limited echo with bubble study revealed PFO present with right to left shunt. Her vitals signs are stable. Telemetry reviewed, she maintaining sinus mechanism HR 90s-100, occasional PACs and PVCs. PHYSICAL EXAMINATION Vitals reviewed CONSTITUTIONAL: No apparent distress. HEENT: Neck Supple. No JVD. No carotid bruit. CHEST EXAMINATION: No chest wall tenderness is noted on palpation or with deep breathing. HEART EXAMINATION: Regular rate and rhythm. S1, S2 heard. ABDOMEN: Soft, nontender. EXTREMITIES: no lower extremity edema and no calf tenderness. NEUROLOGIC EXAMINATION: Patient is awake, not oriented. ASSESSMENT Acute to subacute ischemic stroke involving the left MCA vascular territory, due to thrombus distal left MCA Mobile interatrial septum seen on 2D echocardiogram Covid-19 infection Chronic psychiatric history History mentally delayed PFO PLAN PFO present with right to left shunt on bubble study. We will obtain US dopplers to rule out DVT. Start Eliquis 5mg BID and discontinue aspirin. Neurology following Continue cardiac telemetry. Further recommendations based on clinical course Nurse Practitioner note has been reviewed, I agree with a documented findings and plan of care. Patient was seen and examined. Objective - Vital Signs Vital signs: Vital Signs Temp 98.1 F 12/10/21 08:00 Pulse 85 12/10/21 08:00 Resp 18 12/10/21 08:00 BP 128/75 12/10/21 08:00 Pulse Ox 97 12/10/21 08:00 Intake & Output 12/09/21 12/10/21 12/10/21 18:59 06:59 18:59 Intake Total 1820 Balance 1820 Intake: Intake, IV Titration 800 Amount Sodium Chloride 0.9% 1, 800 000 ml @ 100 mls/hr IV . Q10H [facility] Rx#:[id number] Oral 1020 Other: Voiding Method Bedside Commode Diaper Diaper Diaper # Voids 1 - Labs CBC & Chem 7: 12/08/21 06:01 12/08/21 06:01
--- NOTE | 2021-12-10 12:59 | US ---
EXAMINATION TYPE: US venous doppler duplex LE DATE OF EXAM: 12/10/2021 12:50 PM COMPARISON: NONE CLINICAL HISTORY: CVA, PFO noted on echo, rule out DVT. SIDE PERFORMED: Bilateral TECHNIQUE: The lower extremity deep venous system is examined utilizing real time linear array sonog jennifer with graded compression, doppler sonography and color-flow sonography. VESSELS IMAGED: Common Femoral Vein Deep Femoral Vein Greater Saphenous Vein * Femoral Vein Popliteal Vein Small Saphenous Vein * Proximal Calf Veins (* superficial vessels) Right Leg: no evidence of DVT as visualized Left Leg: no evidence of DVT as visualized IMPRESSION: Grayscale, color doppler, spectral doppler imaging performed of the deep veins of the lo wer extremities. There is normal flow, compressibility, vascular waveforms.
[2021-12-10] MEDS: APIXABAN 5 MG TAB PO SCH (20:23)
--- NOTE | 2021-12-10 22:50 | P.PN ---
Subjective Progress Note Date: 12/10/21 Patient was seen for a follow-up. Patient is laying comfortably in the bed. Offers no complaints. Patient is slightly more interactive. Patient is restless, moving all 4 extremities while laying in the bed. Patient is nonverbal at baseline. Objective - Vital Signs Vital signs: Vital Signs Temp 98.0 F 12/10/21 20:00 Pulse 88 12/10/21 20:00 Resp 20 12/10/21 20:00 BP 105/60 12/10/21 20:00 Pulse Ox 95 12/10/21 20:00 Intake & Output 12/10/21 12/10/21 12/11/21 06:59 18:59 06:59 Intake Total 125 Balance 125 Weight 47.627 kg Intake: Oral 125 Other: Voiding Method Diaper Diaper # Voids 1 - Exam Patient is alert and awake. Patient is mute. She has history of mental delays. Patient has been nonverbal, use sign language. However she is not using any sign language. She has some comprehension. Patient has right facial asymmetry. Patient is right sided weakness, mainly involving the hand in the foot. Patient blinks to visual threat bilaterally. Rest of the examination cannot be performed. - Labs CBC & Chem 7: 12/08/21 06:01 12/08/21 06:01 Assessment and Plan Assessment: * Acute to subacute ischemic stroke involving the left MCA vascular territory, due to thrombus distal left MCA. Patient is mute, and with mild right hemiparesis. Patient is nonverbal at baseline, uses sign language. * Acute Covid-19 infection. * Chronic psych history * Mentally delayed. Plan: * Computed tomography scan of the head confirmed acute CVA in the left MCA vascular territory. * Patient also has a thrombus in the left MCA. Patient was considered not a candidate for thrombectomy. I spoke to Dr. Dax Grier, ED physician, who had spoken to Dr. Grewal about the results, and apparently Dr. Grewal did not elect for patient to be transferred. I spoke to Dr. Grewal, who states that patient was not a candidate for thrombectomy because she already has infarcted. It involved distal M2 segment. * Patient underwent limited 2-D echo with bubble study. Contrast study was performed with 1 IV injection of 8 mL of agitated normal saline at rest. PFO present with [id number] shunt. Patient started on Eliquis. Aspirin discontinued. Patient also on Plavix 75 mg daily. Cardiology input appreciated. * Lipid panel with cholesterol 134, LDL 59, HDL 54 and triglycerides 99. Lipids are well controlled. No indication for statins. * Speech and swallow evaluation * DVT prophylaxis. We will start heparin 5000 units subcu every 12 hours. * PT OT * Blood pressure well controlled, running 122/63. Patient not on any blood pressure medication. * Treatments of other medical conditions as per IM.
[2021-12-11 08:24] LABS: HCT 42.3 % (34.0-46.0); HGB 13.5 gm/dL (11.4-16.0); MCH 30.4 pg (25.0-35.0); MCV 94.9 fL (80.0-100.0); Mean Platelet Volume 7.6; Platelet Count 141 k/uL (150-450); RBC 4.45 m/uL (3.80-5.40); RDW 13.7 % (11.5-15.5); WBC 6.9 k/uL (3.8-10.6)
[2021-12-11 10:03] LABS: ALT 27 U/L (4-34); AST 25 U/L (14-36); African American GFR (CKD) >90 (>60 ml/min/1.73 sqM); Albumin 2.8 g/dL (3.5-5.0); Alkaline Phosphatase 64 U/L (38-126); Anion Gap 3 mmol/L; Blood Urea Nitrogen 4 mg/dL (7-17); Calcium 8.6 mg/dL (8.4-10.2); Carbon Dioxide 25 mmol/L (22-30); Chloride 111 mmol/L (98-107); Glucose 118 mg/dL (74-99); Magnesium 1.9 mg/dL (1.6-2.3); Non-African American GFR(CKD) >90 (>60 ml/min/1.73 sqM); Potassium 3.2 mmol/L (3.5-5.1); Sodium 139 mmol/L (137-145); Total Bilirubin 0.9 mg/dL (0.2-1.3); Total Protein 5.3 g/dL (6.3-8.2)
[2021-12-11] MEDS: SODIUM CHLORIDE 0.9% 1,000 ML IV SCH (10:15)
[2021-12-11] MEDS: CLOPIDOGREL 75 MG TAB PO SCH (10:15)
[2021-12-11] MEDS: ASCORBIC ACID 500 MG TAB PO SCH (10:15)
[2021-12-11] MEDS: CHOLECALCIFEROL 125 MCG (5000 IU) TABLET PO SCH (10:16)
[2021-12-11] MEDS: ZINC SULFATE 220 MG CAP PO SCH (10:16)
[2021-12-11] MEDS: APIXABAN 5 MG TAB PO SCH ×2 (10:16→22:25)
--- NOTE | 2021-12-11 11:54 | P.PN ---
Subjective This is a pleasant 56-year-old female past medical history significant for mental disability, baseline nonverbal, extensive psychiatric history, dysl ipidemia. She does not follow a plan consultant. We have been asked to see in consultation for mobile interarterial septum seen on echocardiogram.. Patient presents emergency department on 12/07/2020 was brought in by caregivers due to concern for change in mental status. Patient normally can walk by herself, communicates with minimal sign language. Staff noted that patient was not communicating, not able to walk on her own. She did have a fall, had a CT at [facility] and was discharged. Neurology is following for CVA. Patient with no known history of coronary artery disease, [place], previous stroke, diabetes, hypertension. DIAGNOSTICS CT brain revealed evolving acute/subacute infarct due to thrombus distal left middle cerebral artery involving the frontal and parietal lobes. She was also found to be covid-19 positive Echocardiogram revealed EF 5055 percent, RV severely enlarged, multiple interarterial septum, mild aortic regurgitation, severe pulmonary hypertension with an RVSP of [address] angiogram of head and neck revealed no significant stenosis. Suspect acute post left middle cerebral artery. No aneurysm at the level [place]. 12/11/21 Patient seen at bedside, no acute distress. Limited echo with bubble study on 12/10/21 revealed PFO present with right to left shunt. She was started on Eliquis 5mg BID. Her vitals signs are stable. Telemetry reviewed, she maint aining sinus mechanism HR 90s-100, no evidence of arrhythmia noted. Left reviewed, sodium 139, potassium 3.2, BUN 4, serum creatinine 0.3. WBC 6.9. Hemoglobin 13.5. Platelets 141. US dopplers were negative for DVT bilateral lower extremities. PHYSICAL EXAMINATION Vitals reviewed CONSTITUTIONAL: No apparent distress. HEENT: Neck Supple. No JVD. No carotid bruit. CHEST EXAMINATION: No chest wall tenderness is noted on palpation or with deep breathing. HEART EXAMINATION: Regular rate and rhythm. S1, S2 heard. ABDOMEN: Soft, nontender. EXTREMITIES: no lower extremity edema and no calf tenderness. NEUROLOGIC EXAMINATION: Patient is awake, not oriented. ASSESSMENT Acute to subacute ischemic stroke involving the left MCA vascular territory, due to thrombus distal left MCA Mobile interatrial septum seen on 2D echocardiogram Covid-19 infection Chronic psychiatric history History mentally delayed PFO Hypokalemia PLAN PFO present with right to left shunt on bubble study. We recommend continuing Eliquis 5mg BID. Per Dr. Lopez patient is not a candidate for PFO closure at this time. Neurology following From a cardiology perspective, no further inpatient workup at this time. We will follow the patient as needed. Please reconsult if needed. Nurse Practitioner note has been reviewed, I agree with a documented findings and plan of care. Patient was seen and examined. Objective - Vital Signs Vital signs: Vital Signs Temp 97.9 F 12/11/21 04:00 Pulse 84 12/11/21 04:00 Resp 18 12/11/21 04:00 BP 113/70 12/11/21 04:00 Pulse Ox 95 12/11/21 04:00 Intake & Output 12/10/21 12/11/21 12/11/21 18:59 06:59 18:59 Intake Total 125 120 Balance 125 120 Weight 47.627 kg Intake: Oral 125 120 Other: Voiding Method Diaper Diaper # Voids 1 - Labs CBC & Chem 7: 12/11/21 07:47 12/11/21 09:28 Labs: Abnormal Lab Results - Last 24 Hours (Table) 12/11/21 12/11/21 Range/Units 07:47 09:28 Plt Count 141 L (150-450) k/uL Potassium 3.2 L (3.5-5.1) mmol/L Chloride 111 H (98-107) mmol/L BUN 4 L (7-17) mg/dL Creatinine 0.38 L (0.52-1.04) mg/dL Glucose 118 H (74-99) mg/dL Total Protein 5.3 L (6.3-8.2) g/dL Albumin 2.8 L (3.5-5.0) g/dL
[2021-12-11] MEDS ORDERED: POTASSIUM CHLORIDE ER 20 MEQ TAB.ER PO STA (13:30)
--- NOTE | 2021-12-11 13:34 | P.PN ---
<Jesus Hay - Last Filed: 12/11/21 13:12> Subjective Progress Note Date: 12/11/21 Hospital course: Patient is a 56-year-old female with a past medical history significant for a physical and mental disabilities, psychiatric disorders, and dyslipidemia. Patient is baseline nonverbal and resides in a [facility]. She presented to the emergency department on 12/07/21 with reports of right sided weakness. She underwent full evaluation in the emergency department which resulting in diagnosis of acute thrombotic CVA. She was admitted under our services with consultation to neurology. Echocardiogram revealed a mobile interatrial septum and cardiology was consulted to evaluate for possible PFO. Patient underwent echo bubble study where she was found to have a PFO with right to left shunting. Cardiology started patient on anticoagulation with Eliquis 5 mg twice daily as they did not feel patient is a candidate for PFO closure at this time. Pt continues to have significant deficits. shelter personnel came up to hospital to evaluate to determine if they will be able to care for/accommodate patient's needs upon discharge, as prior to CVA patient was reportedly independent of ADLs and is now requiring total care. Patient may likely need SNF placement. Imaging: -CT brain without contrast revealed evolving acute/subacute infarct due to thrombus distal left cerebral artery involving the frontal and parietal lobes. -EKG revealed sinus tachycardia at 112 bpm with right bundle branch block. -CTA neck showing no significant stenosis and common or internal carotid arteries -CTA head reports suspected acute thrombus left middle cerebral artery distribution being likely passed trifurcation and not well visualized on CT images. -Echocardiogram revealing an EF of 50-55% with a moderately enlarged right atrium, severely enlarged right ventricle, severe pulmonary hypertension, and a mobile inter-atrial septum. Physical exam: Patient seen and fully evaluated at the bedside, she appears comfortable showing no signs of pain or discomfort. She appears to be more active today moving around in bed and continues to move all extremities independently, but remains unable to follow any commands. Labs revealed mild thrombocytopenia with platelet count of 141 and mild hypokalemia with potassium of 3.2. Plan for discharge once safe discharge plan is in place. Vital signs reviewed and stable. General: Nontoxic, no acute distress. Appears comfortable. Derm: Skin warm and dry, normal coloration for ethnicity. Head: Atraumatic, normocephalic and symmetric. Eyes: no lid lag, and anicteric sclera Mouth: no lip lesions, mucus membranes moist Cardiovascular: regular rate and rhythm with normal S1S2, Systolic murmur, positive posterior tibial pulses bilaterally, and cap refill < 2 seconds. Lungs: Respirations even, regular, and unlabored on room air. Lungs CTA bilaterally, no rhonchi, no rales, no wheezing, and no accessory muscle usage. Abdominal: soft, nontender to palpation, no guarding, no appreciable organomegaly Ext: No gross muscle atrophy, no edema, no contractures Neuro: Patient awake and alert, nonverbal which is reported baseline. Patient moving all extremities independently did not follow commands. Psych: Alert and awake, but nonverbal. Patient unable to follow commands. 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 -Telemetry monitoring -Speech and language pathology following -Physical and occupational therapy consulted -Neuro checks Mobile interatrial septum seen on echocardiogram PFO with [id number] shunting confirmed on bubble study Severely enlarged left ventricle Severe pulmonary hypertension -Cardiology following, started patient on anticoagulation with Eliquis. Stating pt is not a candidate for PFO closure at this time. Recent Covid infection -Continues to test positive on PCR for Covid 19 virus -Continue with daily vitamin C, vitamin D, and zinc. Right foot deformity, likely congenital -X-ray right foot and ankle negative for acute process Hypokalemia, replaced History of mental delays, physical disability, and psychiatric disorders -Provide safe and supportive care with assistance and redirection as needed. CODE STATUS: Full code, patient has a guardian DVT prophylaxis: Heparin Discussed with: RN and case management Anticipated discharge date: Pending placement. Anticipated discharge place: Back to [facility] vs [facility] facility A total of 45 minutes was spent on the care of this complex patient more than 50% of the time was spent in counseling and care coordination. Objective - Vital Signs Vital signs: Vital Signs Temp 97.9 F 12/11/21 04:00 Pulse 84 12/11/21 04:00 Resp 18 12/11/21 04:00 BP 113/70 12/11/21 04:00 Pulse Ox 95 12/11/21 04:00 Intake & Output 12/10/21 12/11/21 12/11/21 18:59 06:59 18:59 Intake Total 125 120 Balance 125 120 Weight 47.627 kg Intake: Oral 125 120 Other: Voiding Method Diaper Diaper # Voids 1 - Labs CBC & Chem 7: 12/11/21 07:47 12/11/21 09:28 <Aurelio Phoenix - Last Filed: 12/11/21 16:01> Subjective agree with note and plan Objective - Vital Signs Vital signs: Vital Signs Temp 98.1 F 12/11/21 11:00 Pulse 106 H 12/11/21 11:00 Resp 16 12/11/21 11:00 BP 131/82 12/11/21 11:00 Pulse Ox 94 L 12/11/21 11:00 Intake & Output 12/10/21 12/11/21 12/11/21 18:59 06:59 18:59 Intake Total 125 360 Balance 125 360 Weight 47.627 kg Intake: Oral 125 360 Other: Voiding Method Diaper Diaper Diaper # Voids 1 1 - Labs CBC & Chem 7: 12/11/21 07:47 12/11/21 09:28 Labs: Abnormal Lab Results - Last 24 Hours (Table) 12/11/21 12/11/21 Range/Units 07:47 09:28 Plt Count 141 L (150-450) k/uL Potassium 3.2 L (3.5-5.1) mmol/L Chloride 111 H (98-107) mmol/L BUN 4 L (7-17) mg/dL Creatinine 0.38 L (0.52-1.04) mg/dL Glucose 118 H (74-99) mg/dL Total Protein 5.3 L (6.3-8.2) g/dL Albumin 2.8 L (3.5-5.0) g/dL
--- NOTE | 2021-12-11 23:53 | P.PN ---
Subjective Progress Note Date: 12/11/21 Patient was seen for a follow-up. Patient's one of the caregiver from [facility] was present. Patient is ambidextrous, writes with the left hand. Patient is very restless, constantly moving, which is her baseline. Patient's caregiver states that she uses sign language. She could use sign language to express her need for coffee, or when she wants to take shower. She frequently would do thumbs up. This is significant change. Patient also used to walk independently, did all ADLs herself like eating. Now she cannot do those. Objective - Vital Signs Vital signs: Vital Signs Temp 97.9 F 12/11/21 15:00 Pulse 89 12/11/21 15:00 Resp 18 12/11/21 15:00 BP 167/56 12/11/21 15:00 Pulse Ox 90 L 12/11/21 15:00 Intake & Output 12/11/21 12/11/21 12/12/21 06:59 18:59 06:59 Intake Total 480 Balance 480 Intake: Oral 480 Other: Voiding Method Diaper Diaper # Voids 1 2 - Exam Patient is alert and awake. Patient is mute. She has history of mental delays. Patient has been nonverbal, use sign language, but has not been using it since her stroke. She has some comprehension. Patient has right facial asymmetry. Patient is right sided weakness, mainly involving the hand in the foot. Patient blinks to visual threat bilaterally. Rest of the examination cannot be performed. Patient does move arms and legs very well, appears somewhat restless. Sometimes she protrudes her tongue. - Labs CBC & Chem 7: 12/11/21 07:47 12/11/21 09:28 Labs: Abnormal Lab Results - Last 24 Hours (Table) 12/11/21 12/11/21 Range/Units 07:47 09:28 Plt Count 141 L (150-450) k/uL Potassium 3.2 L (3.5-5.1) mmol/L Chloride 111 H (98-107) mmol/L BUN 4 L (7-17) mg/dL Creatinine 0.38 L (0.52-1.04) mg/dL Glucose 118 H (74-99) mg/dL Total Protein 5.3 L (6.3-8.2) g/dL Albumin 2.8 L (3.5-5.0) g/dL Assessment and Plan Assessment: * Acute to subacute ischemic stroke involving the left MCA vascular territory, due to thrombus distal left MCA. Patient is mute, and with mild right hemiparesis. Patient is nonverbal at baseline, uses sign language. * PFO noted on 2-D echo, likely the cause of stroke. * Acute Covid-19 infection. * Chronic psych history * Mentally delayed. Plan: * Computed tomography scan of the head confirmed acute CVA in the left MCA vascular territory. * Patient also has a thrombus in the left MCA. Patient was considered not a candidate for thrombectomy. I spoke to Dr. Dax Grier, ED physician, who had spoken to Dr. Grewal about the results, and apparently Dr. Grewal did not elect for patient to be transferred. I spoke to Dr. Grewal, who states that patient was not a candidate for thrombectomy because she already has infarcted. It involved distal M2 segment. * Patient underwent limited 2-D echo with bubble study. Contrast study was performed with 1 IV injection of 8 mL of agitated normal saline at rest. PFO present with [id number] shunt. Patient started on Eliquis. Aspirin discontinued. Patient also on Plavix 75 mg daily. Cardiology input appreciated. Patient not a candidate for PFO closure as per Dr. cespedes. * Lipid panel with cholesterol 134, LDL 59, HDL 54 and triglycerides 99. Lipids are well controlled. No indication for statins. * Speech and swallow evaluation * DVT prophylaxis. We will start heparin 5000 units subcu every 12 hours. * PT OT * Blood pressure well controlled. Patient not on any blood pressure medication. * Neurologically clear for discharge to appropriate facility.
[2021-12-12] MEDS: ASCORBIC ACID 500 MG TAB PO SCH (10:16)
[2021-12-12] MEDS: APIXABAN 5 MG TAB PO SCH (10:16)
[2021-12-12] MEDS: CLOPIDOGREL 75 MG TAB PO SCH (10:16)
[2021-12-12] MEDS: ZINC SULFATE 220 MG CAP PO SCH (10:19)
[2021-12-12] MEDS: CHOLECALCIFEROL 125 MCG (5000 IU) TABLET PO SCH (10:21)
[2021-12-12] MEDS: SODIUM CHLORIDE 0.9% 1,000 ML IV SCH ×3 (10:29→14:56)
--- NOTE | 2021-12-12 13:30 | P.PN ---
<Jesus Hay - Last Filed: 12/12/21 13:11> Subjective Progress Note Date: 12/12/21 Hospital course: Patient is a 56-year-old female with a past medical history significant for a physical and mental disabilities, psychiatric disorders, and dyslipidemia. Patient is baseline nonverbal and resides in a alf. She presented to the emergency department on 12/07/21 with reports of right sided weakness. She underwent full evaluation in the emergency department which resulting in diagnosis of acute thrombotic CVA. She was admitted under our services with consultation to neurology. Echocardiogram revealed a mobile interatrial septum and cardiology was consulted to evaluate for possible PFO. Patient underwent echo bubble study where she was found to have a PFO with right to left shunting. Cardiology started patient on anticoagulation with Eliquis 5 mg twice daily as they did not feel patient is a candidate for PFO closure at this time. Pt continues to have significant deficits and requires total care. Patient unable to return to alf at this time. Plan is for discharge to SNF. Case management working on placement at this time. Patient is medically stable for discharge once placement and insurance authorization is obtained. Patient will be discharged on Eliquis and Plavix. Imaging: -CT brain without contrast revealed evolving acute/subacute infarct due to thrombus distal left cerebral artery involving the frontal and parietal lobes. -EKG revealed sinus tachycardia at 112 bpm with right bundle branch block. -CTA neck showing no significant stenosis and common or internal carotid arteries -CTA head reports suspected acute thrombus left middle cerebral artery distribution being likely passed trifurcation and not well visualized on CT images. -Echocardiogram revealing an EF of 50-55% with a moderately enlarged right atrium, severely enlarged right ventricle, severe pulmonary hypertension, and a mobile inter-atrial septum. Physical exam: Patient seen and fully evaluated at the bedside, she appears comfortable showing no signs of pain or discomfort. Patient appears to be getting stronger and is able to sit up from lying position without any assistance. Patient does continue to have noted right-sided deficits and has limited use of right hand. Patient is however moving all extremities independently. [facility] did evaluate and unable to provide a total patient care at this time. Case management working on placement in SNF and awaiting insurance authorization and acceptance into facility that can accommodate patient's needs. Patient is medically stable for discharge once accepting facility has been found. Vital signs reviewed and stable. General: Nontoxic, no acute distress. Appears comfortable. Derm: Skin warm and dry, normal coloration for ethnicity. Head: Atraumatic, normocephalic and symmetric. Eyes: no lid lag, and anicteric sclera Mouth: no lip lesions, mucus membranes moist Cardiovascular: regular rate and rhythm with normal S1S2, Systolic murmur, positive posterior tibial pulses bilaterally, and cap refill < 2 seconds. Lungs: Respirations even, regular, and unlabored on room air. Lungs CTA bilaterally, no rhonchi, no rales, no wheezing, and no accessory muscle usage. Abdominal: soft, nontender to palpation, no guarding, no appreciable organomegaly Ext: No gross muscle atrophy, no edema, no contractures Neuro: Patient awake and alert, nonverbal which is reported baseline. Patient moving all extremities independently did not follow commands. Psych: Alert and awake, but nonverbal. Patient unable to follow commands. 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 -Telemetry monitoring -Speech and language pathology following -Physical and occupational therapy following Mobile interatrial septum seen on echocardiogram PFO with [id number] shunting confirmed on bubble study Severely enlarged left ventricle Severe pulmonary hypertension -Cardiology following. -Patient to continue anticoagulation with Eliquis, as she is not a candidate for PFO closure at this time. Recent Covid infection -Continues to test positive on PCR for Covid 19 -Continue with daily vitamin C, vitamin D, and zinc. Right foot deformity, likely congenital -X-ray right foot and ankle negative for acute process Hypokalemia, replaced History of mental delays, physical disability, and psychiatric disorders -Provide safe and supportive care with assistance and redirection as needed. CODE STATUS: Full code, patient has a guardian DVT prophylaxis: Heparin Discussed with: RN and case management Anticipated discharge date: Pending placement. Anticipated discharge place: [facility] A total of 45 minutes was spent on the care of this complex patient more than 50% of the time was spent in counseling and care coordination. Objective - Vital Signs Vital signs: Vital Signs Temp 98.2 F 12/12/21 04:00 Pulse 87 12/12/21 04:00 Resp 16 12/12/21 04:00 BP 127/71 12/12/21 04:00 Pulse Ox 92 L 01/14/22 04:00 Intake & Output 12/11/21 12/12/21 12/12/21 18:59 06:59 18:59 Intake Total 480 Balance 480 Intake: Oral 480 Other: Voiding Method Diaper Diaper # Voids 2 2 - Labs CBC & Chem 7: 12/11/21 07:47 12/11/21 09:28 Labs: Abnormal Lab Results - Last 24 Hours (Table) 12/11/21 12/11/21 Range/Units 07:47 09:28 Plt Count 141 L (150-450) k/uL Potassium 3.2 L (3.5-5.1) mmol/L Chloride 111 H (98-107) mmol/L BUN 4 L (7-17) mg/dL Creatinine 0.38 L (0.52-1.04) mg/dL Glucose 118 H (74-99) mg/dL Total Protein 5.3 L (6.3-8.2) g/dL Albumin 2.8 L (3.5-5.0) g/dL <Aurelio Phoenix - Last Filed: 12/13/21 10:49> Subjective agrre with note and plan Objective - Vital Signs Vital signs: Vital Signs Temp 97.0 F L 12/12/21 17:40 Pulse 85 12/12/21 17:40 Resp 18 12/12/21 17:40 BP 138/75 12/12/21 17:40 Pulse Ox 92 L 12/12/21 17:40 Intake & Output 12/12/21 12/13/21 12/13/21 18:59 06:59 18:59 Intake Total 236 Balance 236 Intake: Oral 236 Other: Voiding Method Diaper # Voids 2 - Labs CBC & Chem 7: 12/11/21 07:47 12/11/21 09:28 Labs: Abnormal Lab Results - Last 24 Hours (Table) 12/12/21 Range/Units 17:25 POC Glucose (mg/dL) 104 H (75-99) mg/dL
--- NOTE | 2021-12-12 14:33 | P.DS ---
<Jesus Hay - Last Filed: 12/12/21 14:26> Providers Expected date of discharge: 12/12/21 Hospital Course: Discharge Diagnosis: Acute to subacute thrombotic CVA of left middle cerebral artery with right-sided deficits Mobile interatrial septum seen on echocardiogram, diagnosed with PFO with [id number] shunting Severely enlarged left ventricle Severe pulmonary hypertension Recent Covid infection, Continues to test positive on PCR for Covid 19 Right foot deformity, likely congenital Hypokalemia, replaced History of mental delays, physical disability, and psychiatric disorders Hospital Course: Patient is a 56-year-old female with a past medical history significant for a physical and mental disabilities, psychiatric disorders, and dyslipidemia. Patient is baseline nonverbal and resides in a custodial. She presented to the emergency department on 12/07/21 with reports of right sided weakness. She underwent full evaluation in the emergency department which resulting in diagnosis of acute thrombotic CVA. She was admitted under our services with consultation to neurology. Echocardiogram revealed a mobile interatrial septum and cardiology was consulted to evaluate for possible PFO. Patient underwent echo bubble study where she was found to have a PFO with right to left shunting. Cardiology started patient on anticoagulation with Eliquis 5 mg twice daily as they did not feel patient is a candidate for PFO closure at this time. Pt continues to have significant deficits and requires total care. Patient unable to return to custodial at this time secondary to need of full care. Patient being discharged to [facility] where she will receive continued rehabilitation with physical therapy, occupational therapy, and speech and language pathologist. Patient will be discharged on Eliquis and Plavix and to follow up with neurology, cardiology, and PCP. Imaging: -CT brain without contrast revealed evolving acute/subacute infarct due to thrombus distal left cerebral artery involving the frontal and parietal lobes. -EKG revealed sinus tachycardia at 112 bpm with right bundle branch block. -CTA neck showing no significant stenosis and common or internal carotid arteries -CTA head reports suspected acute thrombus left middle cerebral artery distribution being likely passed trifurcation and not well visualized on CT im ages. -Echocardiogram revealing an EF of 50-55% with a moderately enlarged right atrium, severely enlarged right ventricle, severe pulmonary hypertension, and a mobile inter-atrial septum. A total of 40 minutes of time were spent preparing this complex discharge summary. Patient Condition at Discharge: Stable Plan - Discharge Summary New Discharge Prescriptions: New Apixaban [Eliquis] 5 mg PO BID tab Clopidogrel [Plavix] 75 mg PO DAILY tab Continue Atorvastatin Calcium [Lipitor] 20 mg PO HS clonazePAM 0.5 mg PO TID Lactose-Reduced Food [Ensure Original] 1 can PO DAILY polyethylene glycoL 3350 [Miralax] 17 gm PO HS risperiDONE [RisperDAL] 3 mg PO HS FLUoxetine HCL [PROzac] 40 mg PO DAILY risperiDONE [RisperDAL] 1.5 mg PO DAILY Discontinued Haloperidol 1 mg PO BID PRN PRN Reason: ANXIETY/AGITATION Discharge Medication List Atorvastatin Calcium [Lipitor] 20 mg PO HS 12/07/21 [History] FLUoxetine HCL [PROzac] 40 mg PO DAILY 12/07/21 [History] Lactose-Reduced Food [Ensure Original] 1 can PO DAILY 12/07/21 [History] clonazePAM 0.5 mg PO TID 12/07/21 [History] polyethylene glycoL 3350 [Miralax] 17 gm PO HS 12/07/21 [History] risperiDONE [RisperDAL] 1.5 mg PO DAILY 12/07/21 [History] risperiDONE [RisperDAL] 3 mg PO HS 12/07/21 [History] Apixaban [Eliquis] 5 mg PO BID tab 12/12/21 [Rx] Clopidogrel [Plavix] 75 mg PO DAILY tab 12/12/21 [Rx] Follow up Appointment(s)/Referral(s): Richard Lopez MD [STAFF PHYSICIAN] - 3 Weeks [facility], [NON-STAFF] - 1-2 Days Jenelle Forrest DO [Primary Care Provider] - 1-2 days Harjeet Mcrae MD [Medical Doctor] - 1 Week Activity/Diet/Wound Care/Special Instructions: Activity: As tolerated. Take breaks as needed. Diet: Heart healthy and carb consistent diet. Avoid salts, or foods with hidden salts such as canned or boxed foods and frozen dinners. Extra salt makes your heart work harder and traps the fluid in your body for longer. Special Instructions: Take all of your medications as directed and remember to keep all of your doctor's appointments and follow-up as needed. Patient being discharged to [facility] at this time for continued working with physical, occupational, and speech therapy.. Thank you for allowing us to participate in your care, it was truly a pleasure having you for our patient!!! Discharge Disposition: TRANSFER TO SNF/ECF <Aurelio Phoenix A - Last Filed: 12/13/21 10:45> Providers Date of admission: 12/07/21 13:41 Attending physician: Leslie Eisenberg MD Consults: 12/07/21 13:41 Consult Physician Urgent Consulting Provider: Efra Tirado Consult Reason/Comments: cva Do you want consulting provider notified?: Yes 12/09/21 08:00 Consult Physician Urgent Consulting Provider: Franklin Strauss Consult Reason/Comments: MOBILE INTERATRIAL SEPTUM W/ THROMBOTIC CVA Do you want consulting provider notified?: Yes Primary care physician: Jenelle Forrest
[2021-12-12 17:26] LABS: Glucose,Whole Blood 104 mg/dL (75-99)
[2021-12-12 17:41] VITALS: BP 138/75; PULSE 85; RESP 18; TEMP 97
== END 2021-12-12 18:22 | DRG 64 ==
LOC: EC 11:15 → 3SCARD 13:41
PROVIDERS: ADMIT Internal Medicine; ATTEND Internal Medicine
DX: I63.312 Cerebral infarction due to thrombosis of left middle cerebral artery (principal); U07.1 COVID-19; G81.91 Hemiplegia, unspecified affecting right dominant side; Q21.1 Atrial septal defect; I27.20 Pulmonary hypertension, unspecified; D69.6 Thrombocytopenia, unspecified; R47.01 Aphasia; I45.10 Unspecified right bundle-branch block; E78.5 Hyperlipidemia, unspecified; I35.1 Nonrheumatic aortic (valve) insufficiency; F79 Unspecified intellectual disabilities; E87.6 Hypokalemia; Q66.91 Congenital deformity of feet, unspecified, right foot; Z79.899 Other long term (current) drug therapy; Z86.16 Personal history of COVID-19; W19.XXXA Unspecified fall, initial encounter
CPT/HCPCS: 36415; 70450; 70496; 70498; 71045; 80053; 80061; 83036; 83735; 84100; 84484; 85025; 85027; 85610; 85730; 87635; 93005; 93306; 93308; 93970; 99285

== ENCOUNTER 2022-06-06 09:37 | Inpatient (IN) | payer MEDICARE, OTHER ==
[2022-06-06] MEDS ORDERED: ACETAMINOPHEN TAB 325 MG TAB PO STA (09:50)
--- NOTE | 2022-06-06 09:54 | ED ---
General Adult HPI - General Chief complaint: Shortness of Breath Stated complaint: SOB Time Seen by Provider: 06/06/22 09:44 Source: EMS, RN notes reviewed Mode of arrival: EMS Limitations: altered mental status - History of Present Illness Initial comments: Patient is a pleasant developmentally delayed 56-year-old female presenting to the emergency department with concern for patient's breathing. [facility] from [facility]. Patient is nonverbal and provides no history. Unclear onset. Unclear if history of similar symptoms previously. - Related Data Home Medications Medication Instructions Recorded Confirmed Atorvastatin Calcium [Lipitor] 20 mg PO HS 12/07/21 12/07/21 FLUoxetine HCL [PROzac] 40 mg PO DAILY 12/07/21 12/07/21 Lactose-Reduced Food [Ensure 1 can PO DAILY 12/07/21 12/07/21 Original] clonazePAM 0.5 mg PO TID 12/07/21 12/07/21 polyethylene glycoL 3350 [Miralax] 17 gm PO HS 12/07/21 12/07/21 risperiDONE [RisperDAL] 1.5 mg PO DAILY 12/07/21 12/07/21 risperiDONE [RisperDAL] 3 mg PO HS 12/07/21 12/07/21 Previous Rx's Medication Instructions Recorded Apixaban [Eliquis] 5 mg PO BID tab 12/12/21 Clopidogrel [Plavix] 75 mg PO DAILY tab 12/12/21 Allergies Allergy/AdvReac Type Severity Reaction Status Date / Time No Known Allergies Allergy Verified 06/06/22 09:43 Review of Systems ROS Statement: Those systems with pertinent positive or pertinent negative responses have been documented in the HPI. ROS Other: All systems not noted in ROS Statement are negative. Limitations: ROS unobtainable due to patients medical condition Past Medical History Past Medical History: CVA/TIA Additional Past Medical History / Comment(s): mentally delayed History of Any Multi-Drug Resistant Organisms: None Reported Past Surgical History: Unable to Obtain Past Psychological History: Unable to Obtain Smoking Status: Unknown if ever smoked Past Alcohol Use History: Unable to Obtain Past Drug Use History: Unable to Obtain General Exam General appearance: alert Head exam: Present: atraumatic Eye exam: Present: normal appearance Neck exam: Present: normal inspection Respiratory exam: Present: rales, other (Mild tachypnea) Cardiovascular Exam: Present: tachycardia, systolic murmur GI/Abdominal exam: Present: soft. Absent: tenderness Extremities exam: Present: normal inspection. Absent: pedal edema, calf tenderness Neurological exam: Present: alert Psychiatric exam: Present: normal affect, normal mood Skin exam: Present: normal color Course Vital Signs 06/06/22 06/06/22 06/06/22 09:38 09:43 09:50 Temperature 99.5 F Pulse Rate 101 H Respiratory 24 22 Rate Blood Pressure 97/62 O2 Sat by Pulse 90 L 93 L Oximetry 06/06/22 10:31 Temperature Pulse Rate 99 Respiratory 24 Rate Blood Pressure 93/63 O2 Sat by Pulse 94 L Oximetry - Reevaluation(s) Reevaluation #1: 06/06/22 10:57 Patient does meet sepsis criteria diagnosed at 10:55 AM. Blood culture and lactic acid have been ordered. IV antibiotics will be ordered EKG Findings - EKG Comments: EKG Findings:: Sinus tachycardia 101. KS 17. QRS 114. QT 390. QTC 448. Right axis. Incomplete right bundle branch block. No acute ST change. Medical Decision Making - Medical Decision Making Patient reevaluated. [facility] physician group has been paged for admission current hospital call. Admission orders written. - Lab Data Result diagrams: 06/06/22 10:05 06/06/22 10:05 Lab Results 06/06/22 06/06/22 06/06/22 Range/Units 10:05 10:05 10:05 WBC 5.5 (3.8-10.6) k/uL RBC 4.43 (3.80-5.40) m/uL Hgb 13.0 (11.4-16.0) gm/dL Hct 38.3 (34.0-46.0) % MCV 86.4 (80.0-100.0) fL MCH 29.4 (25.0-35.0) pg MCHC 34.0 (31.0-37.0) g/dL RDW 13.5 (11.5-15.5) % Plt Count 145 L (150-450) k/uL MPV 7.2 PT 11.5 (9.0-12.0) sec INR 1.1 (<1.2) APTT 22.7 (22.0-30.0) sec VBG pH (7.31-7.41) VBG pCO2 (37-51) mmHg VBG HCO3 (24-28) mmol/L Sodium 135 L (137-145) mmol/L Potassium 3.6 (3.5-5.1) mmol/L Chloride 103 (98-107) mmol/L Carbon Dioxide 25 (22-30) mmol/L Anion Gap 7 mmol/L BUN 16 (7-17) mg/dL Creatinine 0.52 (0.52-1.04) mg/dL Est GFR (CKD-EPI)AfAm >90 (>60 ml/min/1.73 sqM) Est GFR (CKD-EPI)NonAf >90 (>60 ml/min/1.73 sqM) Glucose 105 H (74-99) mg/dL Plasma Lactic Acid Nito (0.7-2.0) mmol/L Calcium 9.0 (8.4-10.2) mg/dL Total Bilirubin 1.6 H (0.2-1.3) mg/dL AST 17 (14-36) U/L ALT 15 (4-34) U/L Alkaline Phosphatase 71 (38-126) U/L Troponin I (0.000-0.034) ng/mL Total Protein 5.9 L (6.3-8.2) g/dL Albumin 3.8 (3.5-5.0) g/dL Coronavirus (PCR) (Not Detectd) Influenza Type A RNA (Not Detectd) Influenza Type B (PCR) (Not Detectd) 06/06/22 06/06/22 06/06/22 Range/Units 10:05 10:05 10:05 WBC (3.8-10.6) k/uL RBC (3.80-5.40) m/uL Hgb (11.4-16.0) gm/dL Hct (34.0-46.0) % MCV (80.0-100.0) fL MCH (25.0-35.0) pg MCHC (31.0-37.0) g/dL RDW (11.5-15.5) % Plt Count (150-450) k/uL MPV PT (9.0-12.0) sec INR (<1.2) APTT (22.0-30.0) sec VBG pH (7.31-7.41) VBG pCO2 (37-51) mmHg VBG HCO3 (24-28) mmol/L Sodium (137-145) mmol/L Potassium (3.5-5.1) mmol/L Chloride (98-107) mmol/L Carbon Dioxide (22-30) mmol/L Anion Gap mmol/L BUN (7-17) mg/dL Creatinine (0.52-1.04) mg/dL Est GFR (CKD-EPI)AfAm (>60 ml/min/1.73 sqM) Est GFR (CKD-EPI)NonAf (>60 ml/min/1.73 sqM) Glucose (74-99) mg/dL Plasma Lactic Acid Nito 1.3 (0.7-2.0) mmol/L Calcium (8.4-10.2) mg/dL Total Bilirubin (0.2-1.3) mg/dL AST (14-36) U/L ALT (4-34) U/L Alkaline Phosphatase (38-126) U/L Troponin I <0.012 (0.000-0.034) ng/mL Total Protein (6.3-8.2) g/dL Albumin (3.5-5.0) g/dL Coronavirus (PCR) (Not Detectd) Influenza Type A RNA Not Detected (Not Detectd) Influenza Type B (PCR) Not Detected (Not Detectd) 06/06/22 06/06/22 Range/Units 10:05 10:05 WBC (3.8-10.6) k/uL RBC (3.80-5.40) m/uL Hgb (11.4-16.0) gm/dL Hct (34.0-46.0) % MCV (80.0-100.0) fL MCH (25.0-35.0) pg MCHC (31.0-37.0) g/dL RDW (11.5-15.5) % Plt Count (150-450) k/uL MPV PT (9.0-12.0) sec INR (<1.2) APTT (22.0-30.0) sec VBG pH 7.39 (7.31-7.41) VBG pCO2 44 (37-51) mmHg VBG HCO3 26 (24-28) mmol/L Sodium (137-145) mmol/L Potassium (3.5-5.1) mmol/L Chloride (98-107) mmol/L Carbon Dioxide (22-30) mmol/L Anion Gap mmol/L BUN (7-17) mg/dL Creatinine (0.52-1.04) mg/dL Est GFR (CKD-EPI)AfAm (>60 ml/min/1.73 sqM) Est GFR (CKD-EPI)NonAf (>60 ml/min/1.73 sqM) Glucose (74-99) mg/dL Plasma Lactic Acid Nito (0.7-2.0) mmol/L Calcium (8.4-10.2) mg/dL Total Bilirubin (0.2-1.3) mg/dL AST (14-36) U/L ALT (4-34) U/L Alkaline Phosphatase (38-126) U/L Troponin I (0.000-0.034) ng/mL Total Protein (6.3-8.2) g/dL Albumin (3.5-5.0) g/dL Coronavirus (PCR) Not Detected (Not Detectd) Influenza Type A RNA (Not Detectd) Influenza Type B (PCR) (Not Detectd) - Radiology Data Radiology results: image reviewed (Chest x-ray shows new left mid and lower lung acute infiltrates. Possibly right lower lobe infiltrate) Critical Care Time Critical Care Time: Yes Total Critical Care Time: 32 Disposition Clinical Impression: Pneumonia, Sepsis Disposition: ADMITTED IP TO THIS HOSP Condition: Serious Is patient prescribed a controlled substance at d/c from ED?: No Referrals: Jenelle Forrest DO [Primary Care Provider] - 1-2 days Time of Disposition: 10:58
--- NOTE | 2022-06-06 10:17 | XR ---
EXAMINATION TYPE: XR chest 2V DATE OF EXAM: 06/06/2022 COMPARISON: Chest x-ray December 07, 2021 HISTORY: Fever and hypoxia. TECHNIQUE: Frontal and lateral views of the chest are obtained. FINDINGS: There are new left mid lung and basilar opacities along with right basilar opacity. The c ardiac silhouette size is stable and mildly enlarged. No pleural effusion or pneumothorax evident on lateral view. The osseous structures are intact. IMPRESSION: New left mid and lower lung acute infiltrates and right basilar acute infiltrate and/or atelectasis.
[2022-06-06 10:29] LABS: VBG PH 7.39 (7.31-7.41)
[2022-06-06 10:35] LABS: ALT 15 U/L (4-34); AST 17 U/L (14-36); African American GFR (CKD) >90 (>60 ml/min/1.73 sqM); Albumin 3.8 g/dL (3.5-5.0); Alkaline Phosphatase 71 U/L (38-126); Anion Gap 7 mmol/L; Blood Urea Nitrogen 16 mg/dL (7-17); Carbon Dioxide 25 mmol/L (22-30); Chloride 103 mmol/L (98-107); Glucose 105 mg/dL (74-99); Non-African American GFR(CKD) >90 (>60 ml/min/1.73 sqM); Potassium 3.6 mmol/L (3.5-5.1); Sodium 135 mmol/L (137-145); Total Bilirubin 1.6 mg/dL (0.2-1.3); Total Protein 5.9 g/dL (6.3-8.2)
[2022-06-06 10:36] LABS: INR 1.1 (<1.2); Partial Thromboplastin Time 22.7 sec (22.0-30.0); Prothrombin Time 11.5 sec (9.0-12.0)
[2022-06-06 10:47] LABS: HCT 38.3 % (34.0-46.0); MCH 29.4 pg (25.0-35.0); MCV 86.4 fL (80.0-100.0); Mean Platelet Volume 7.2; Platelet Count 145 k/uL (150-450); RBC 4.43 m/uL (3.80-5.40); RDW 13.5 % (11.5-15.5); WBC 5.5 k/uL (3.8-10.6)
[2022-06-06] MEDS ORDERED: ACETAMINOPHEN TAB 325 MG TAB PO PRN (11:08)
[2022-06-06] MEDS ORDERED: VANCOMYCIN IV PER PHARMACY 1 EACH MISC MISCELLANE PRN (11:08)
[2022-06-06] MEDS ORDERED: AZITHROMYCIN 500 MG in SODIUM CHLORIDE 0.9% 250 ML IVPB STA (11:08)
[2022-06-06] MEDS ORDERED: PNEUMONIA PROTOCOL UTILIZED 1 EACH MISC PO PRN (11:08)
[2022-06-06] MEDS ORDERED: IPRATROPIUM-ALBUTEROL 3 ML NEB INHALATION PRN (11:08)
[2022-06-06] MEDS: SODIUM CHLORIDE 0.9% 1,000 ML IV SCH ×2 (11:26→22:22)
[2022-06-06] MEDS ORDERED: VANCOMYCIN 750 MG in SODIUM CHLORIDE 0.9% 250 ML IVPB ONE (11:30)
[2022-06-06 11:43] LABS: Monocytes # (M) 0.44 k/uL (0-1.0); Nucleated Red Blood Cells 0 /100 WBC (0-0)
[2022-06-06 11:46] LABS: Band Neutrophils % 9 %; Lymphocytes # (M) 0.28 k/uL (1.0-4.8); Neutrophils % (M) 78 %; Total Cells Counted 200
[2022-06-06 11:47] LABS: RBC Morphology Normal
--- NOTE | 2022-06-06 12:50 | P.CNPUL ---
History of Present Illness Consult date: 06/06/22 Requesting physician: Dax Grier Reason for consult: dyspnea, hypoxemia, pneumonia Chief complaint: Dyspnea, acute hypoxic respiratory failure History of present illness: 56 year old female patient, with chronic developmental delay, resident of a local longterm who is a poor historian, was brought into the emergency department on 06/06/2022 by ambulance for evaluation of worsening shortness of breath. Patient is nonverbal, and there is limited history available to us. Time of onset of symptoms is unclear, in the emergency department she has a low- grade fever with a temp of 99F, she is currently requiring 6 L of oxygen and she is satting 93-94%, blood pressure is 93/63, slightly congested, but appears to be in no acute distress, chest x-ray showed new left mid and lower lung acute infiltrate and right basilar Infiltrate. EKG showed sinus tachycardia. COVID- 19 and influenza A and B were negative. CBC showed normal white count of 5.5, hemoglobin 13.0, coagulation profile was unremarkable, sodium was 135, and a breast reduction lites and renal profile were within normal limits. LFTs were within normal limits, troponin was negative at less than 0.012. Initial antibiotic coverage was switched with azithromycin and Rocephin in the emergency department however was later switched to Zosyn and vancomycin for possibility of aspiration related pneumonia or healthcare acquired pneumonia. Review of Systems All systems: negative Constitutional: Denies chills, Denies fever Eyes: denies blurred vision, denies pain Ears, nose, mouth and throat: Denies headache, Denies sore throat Cardiovascular: Denies chest pain, Denies shortness of breath Respiratory: Reports cough with sputum, Reports dyspnea, Reports respiratory infections, Reports wheezing, Denies cough Gastrointestinal: Denies abdominal pain, Denies diarrhea, Denies nausea, Denies vomiting Genitourinary: Denies dysuria, Denies hematuria Musculoskeletal: Denies myalgias Integumentary: Denies pruritus, Denies rash Neurological: Denies numbness, Denies weakness Psychiatric: Denies anxiety, Denies depression Endocrine: Denies fatigue, Denies weight change Past Medical History Past Medical History: CVA/TIA Additional Past Medical History / Comment(s): mentally delayed History of Any Multi-Drug Resistant Organisms: None Reported Past Surgical History: Unable to Obtain Past Psychological History: Unable to Obtain Smoking Status: Unknown if ever smoked Past Alcohol Use History: Unable to Obtain Past Drug Use History: Unable to Obtain Medications and Allergies Home Medications Medication Instructions Recorded Confirmed Type Atorvastatin Calcium [Lipitor] 20 mg PO HS@199912/07/21 06/06/22 History FLUoxetine HCL [PROzac] 40 mg PO DAILY@0700 12/07/21 06/06/22 History clonazePAM 0.5 mg PO TID@0600,1499,199912/07/21 06/06/22 History polyethylene glycoL 3350 [Miralax] 17 gm PO HS@199912/07/21 06/06/22 History risperiDONE [RisperDAL] 1.5 mg PO DAILY@00 12/07/21 06/06/22 History risperiDONE [RisperDAL] 3 mg PO HS@199912/07/21 06/06/22 History Ammonium Lactate Lotion 1 applic TOPICAL DAILY 06/06/22 06/06/22 History [Lac-Hydrin 12% Lotion] Apixaban [Eliquis] 5 mg PO BID@0600,1700 06/06/22 06/06/22 History Clopidogrel [Plavix] 75 mg PO DAILY@0600 06/06/22 06/06/22 History Clotrimazole/Betameth Cream 1 applic TOPICAL DAILY 06/06/22 06/06/22 History [Lotrisone] Verapamil [Isoptin] 40 mg PO BID@0600,1700 06/06/22 06/06/22 History Allergies Allergy/AdvReac Type Severity Reaction Status Date / Time No Known Allergies Allergy Verified 06/06/22 12:00 Physical Exam Vitals: Vital Signs Temp Pulse Resp BP Pulse Ox 06/06/22 11:56 94 L 06/06/22 11:30 99 F 93 18 90/60 93 L 06/06/22 10:31 99 24 93/63 94 L 06/06/22 09:50 22 06/06/22 09:43 93 L 06/06/22 09:38 99.5 F 101 H 24 97/62 90 L Intake and Output 06/05/22 06/06/22 06/06/22 22:59 06:59 14:59 Other: Weight 45.359 kg GENERAL EXAM: Alert, 56-year-old female patient on 6 L of oxygen pulse ox of 93%, she is looking around, but she is nonverbal, does not appear to be in any acute distress HEAD: Normocephalic/atraumatic. EYES: Normal reaction of pupils, equal size. Conjunctiva pink, sclera white. NOSE: Clear with pink turbinates. THROAT: No erythema or exudates. NECK: No masses, no JVD, no thyroid enlargement, no adenopathy. CHEST: No chest wall deformity. Symmetrical expansion. LUNGS: Equal air entry with mild basilar crackles CVS: Regular rate and rhythm, normal S1 and S2, no gallops, no murmurs, no rubs ABDOMEN: Soft, nontender. No hepatosplenomegaly, normal bowel sounds, no guarding or rigidity. EXTREMITIES: No clubbing, no edema, no cyanosis, 2+ pulses and upper and lower extremities. MUSCULOSKELETAL: Muscle strength and tone normal. SPINE: No scoliosis or deformity SKIN: No rashes CENTRAL NERVOUS SYSTEM: Alert, but unable to assess orientation No focal deficits, tone is normal in all 4 extremities. Results - Laboratory Findings CBC and BMP: 06/06/22 10:05 06/06/22 10:05 PT/INR, D-dimer PT 11.5 sec (9.0-12.0) 06/06/22 10:05 INR 1.1 (<1.2) 06/06/22 10:05 Abnormal lab findings: Abnormal Labs 06/06/22 06/06/22 10:05 10:05 Plt Count 145 L Lymphocytes # (Manual) 0.28 L Sodium 135 L Glucose 105 H Total Bilirubin 1.6 H Total Protein 5.9 L - Diagnostic Findings Chest x-ray: report reviewed, image reviewed Additional studies: EKG reviewed, chest x-ray reviewed Assessment and Plan Plan: Assessment: #1. Acute hypoxic respiratory failure related to suspected acute aspiration versus healthcare acquired pneumonia. COVID-19 PCR, influenza A and B were negative #2. Chronic developmental delay, patient is nonverbal #3. Chronic psychiatric history #4. History of CVA with right-sided weakness #5. History of COVID 19 in October 2021 #6. Chronic constipation #7. Severe pulmonary hypertension with RVSP of 60 mmHg on echocardiogram from November 2021 Plan: Continue Zosyn and vancomycin maintain aspiration precautions Obtain speech evaluation Procalcitonin level and proBNP pending COVID-19 and influenza screen negative Or obtain a echocardiogram We'll continue to follow with you I have personally seen and examined the patient, performed the documentation and the assessment and plan as written. Number of minutes spent on the visit: [15] Time with Patient: Greater than 30
[2022-06-06] MEDS: clonazePAM 0.5 MG TAB PO SCH ×2 (14:29→20:51)
[2022-06-06] MEDS: PIPERACILLIN-TAZOBACTAM 3.375 GM in SODIUM CHLORIDE 0.9% 100 ML IVPB SCH (15:26)
[2022-06-06] MEDS: APIXABAN 5 MG TAB PO SCH (15:27)
[2022-06-06 16:15] LABS: Appearance,Urine Clear (Clear); Bilirubin,Urine Negative (Negative); Blood,Urine Negative (Negative); Color,Urine Light Yellow; Glucose,Urine (UA) Negative (Negative); Ketones,Urine Negative (Negative); Leukocyte Esterase,Urine Negative (Negative); Nitrite,Urine Negative (Negative); Protein,Urine Negative (Negative); Specific Gravity,Urine 1.006 (1.001-1.035); Urobilinogen,Urine <2.0 mg/dL (<2.0)
[2022-06-06] MEDS: VERAPAMIL 40 MG TAB PO SCH (17:35)
--- NOTE | 2022-06-06 18:22 | P.HPIM ---
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 Patient presented to the emergency department from shelter with a chief complaint of respiratory difficulties. Information obtained from clinical findings, ED documentation and nursing staff as attempts were made at contacting patient's family unsuccessful and patient is nonverbal at baseline and unable to follow commands. It is unclear when onset of respiratory difficulties began or if they have been accompanied by any associated symptoms. Upon arrival to the emergency department patient was found to be hypoxic requiring oxygen supplementation and was placed on 6 L O2 via nasal cannula and SpO2 increased to 93%. In addition patient had a low-grade temp of 99.5 axillary, tachycardic at 101 bpm, tachypneic with respiratory rate of 24, and hypotensive with blood pressure of 97/62. Chest x-ray was completed showing new left mid and lower lung acute infiltrates in right basilar acute infiltrate and/or atelectasis. EKG revealed sinus tachycardia at 101 bpm with a right bundle branch block. CBC unremarkable with the exception of mild thrombocytopenia with platelet count of 145. Coags normal findings. VBG showing no significant abnormalities. CMP revealing hyponatremia with sodium of 135 and slightly elevated total bili of 1.6. Urinalysis was negative for infection. Covid PCR, influenza a, and influenza B were negative. Review of systems: Unable to obtain ROS secondary to limited information available, patient's mentation and unsuccessful attempts at contacting family. Physical exam: Vital signs reviewed and stable. General: Nontoxic, no distress and appears stated age. Derm: Skin warm and dry, normal coloration for ethnicity. Head: Atraumatic, normocephalic and symmetric. Eyes: EOMs intact, no lid lag, and anicteric sclera Mouth: no lip lesions, mucus membranes moist Cardiovascular: regular rate and rhythm with normal S1S2, systolic murmur, positive posterior tibial pulses bilaterally, and cap refill < 2 seconds. Lungs: Respirations even, regular, and unlabored on 6 L O2 via nasal cannula. Lungs slightly diminished with bibasilar crackles, no rhonchi, no rales, and no wheezing noted. Patient had no accessory muscle usage. Abdominal: soft, nontender to palpation, no guarding, no appreciable organomegaly Ext: ROM intact. Patient bedridden but moving all extremities independently with no noted difficulties at this time. Patient does have right lower extremity deformity. Neuro: Speech clear, face symmetrical and CN II-XII grossly intact with no noted focal neuro deficits Psych: Patient is nonverbal. Assessment and Plan of Care: Acute respiratory failure with hypoxia secondary to pneumonia, aspiration pneumonia versus community-acquired pneumonia -Covid PCR, influenza a, and influenza B were negative. -Oxygenation to be administered and titrated as needed to maintain SPO2 equal to or greater than 92% -Telemetry monitoring. -IV antibiotics: Zosyn and vancomycin -Monitor Pulse-oximetry -Duonebs as needed for SOB and/or wheezing -Incentive Spirometry -Consult to pulmonology, appreciate recommendations. -Swallow evaluation by speech and language pathologist -Aspiration precautions History of thrombotic CVA of the left middle cerebral artery resulting in right-sided deficits Multiple interatrial septum seen on echocardiogram resulting in diagnosis of PFO with wwut-wy-[id number] shunting -Right-sided deficits appear to have improved as patient is moving right upper and lower extremities independently and appears to be controlled with left upper and lower extremity movements. Patient does not follow commands unable to fully assess/compare strength. -Continue Plavix and Eliquis History of Physical and developmental disability and psychiatric disorders -Nonverbal -Turn every 2 hours and provide assistance as needed. Severe pulmonary hypertension -Echocardiogram completed 12/08/21 revealing an EF of 50-55% with a moderately enlarged right atrium, severely enlarged right ventricle, severe pulmonary hypertension, and a multiple interatrial septum. -Repeat echocardiogram ordered by pulmonary. History of psychiatric disorders -Continue daily medication regimen with Klonopin, Prozac, Risperdal, Hyperlipidemia Continue daily medication regimen with atorvastatin. The patient is admitted with an anticipated greater than 2 midnight stay for evaluation of Acute respiratory failure with hypoxia secondary to pneumonia. CODE STATUS: FULL CODE (Attempted to call and discuss with legal guardian King Garcia as well as Mary Grierch patient's sibling CODE STATUS for patient, was unable to get a hold of either upon attempts at 11:30 AM and again at 12:43 PM. Patient to be made full code by default until contact with family can be made). DVT prophylaxis: Seth Discussed with: RN, attempts were made to call patient's family unsuccessful, will try again tomorrow. Anticipated discharge date: Clinical course to determine Anticipated discharge place: Return to shelter A total of 45 minutes was spent on the care of this complex patient more than 50% of the time was spent in counseling and care coordination. Past Medical History Past Medical History: CVA/TIA Additional Past Medical History / Comment(s): mentally delayed History of Any Multi-Drug Resistant Organisms: None Reported Past Surgical History: Unable to Obtain Past Psychological History: Unable to Obtain Smoking Status: Unknown if ever smoked Past Alcohol Use History: Unable to Obtain Past Drug Use History: Unable to Obtain - Past Family History Father Family Medical History: Cancer, Hearing Disorder / Deafness, Hypertension Medications and Allergies Home Medications Medication Instructions Recorded Confirmed Type Atorvastatin Calcium [Lipitor] 20 mg PO HS@199912/07/21 06/06/22 History FLUoxetine HCL [PROzac] 40 mg PO DAILY@0712/07/21 06/06/22 History clonazePAM 0.5 mg PO TID@0600,1500,199912/07/21 06/06/22 History polyethylene glycoL 3350 [Miralax] 17 gm PO HS@199912/07/21 06/06/22 History risperiDONE [RisperDAL] 1.5 mg PO DAILY@0600 12/07/21 06/06/22 History risperiDONE [RisperDAL] 3 mg PO HS@199912/07/21 06/06/22 History Ammonium Lactate Lotion 1 applic TOPICAL DAILY 06/06/22 06/06/22 History [Lac-Hydrin 12% Lotion] Apixaban [Eliquis] 5 mg PO BID@0600,1700 06/06/22 06/06/22 History Clopidogrel [Plavix] 75 mg PO DAILY@0600 06/06/22 06/06/22 History Clotrimazole/Betameth Cream 1 applic TOPICAL DAILY 06/06/22 06/06/22 History [Lotrisone] Verapamil [Isoptin] 40 mg PO BID@0600,1700 06/06/22 06/06/22 History Allergies Allergy/AdvReac Type Severity Reaction Status Date / Time No Known Allergies Allergy Verified 06/06/22 12:00 Physical Exam Vitals: Vital Signs Temp Pulse Resp BP Pulse Ox 06/06/22 10:31 99 24 93/63 94 L 06/06/22 09:50 22 06/06/22 09:43 93 L 06/06/22 09:38 99.5 F 101 H 24 97/62 90 L Intake and Output 06/05/22 06/06/22 06/06/22 22:59 06:59 14:59 Other: Weight 45.359 kg Results CBC & Chem 7: 06/06/22 10:05 06/06/22 10:05 Labs: Abnormal Lab Results - Last 24 Hours (Table) 06/06/22 06/06/22 Range/Units 10:05 10:05 Plt Count 145 L (150-450) k/uL Sodium 135 L (137-145) mmol/L Glucose 105 H (74-99) mg/dL Total Bilirubin 1.6 H (0.2-1.3) mg/dL Total Protein 5.9 L (6.3-8.2) g/dL
[2022-06-06] MEDS: VANCOMYCIN 750 MG in SODIUM CHLORIDE 0.9% 250 ML IVPB SCH (20:50)
[2022-06-06] MEDS: ATORVASTATIN 20 MG TAB PO SCH (20:51)
[2022-06-06] MEDS: polyethylene glycoL 3350 17 GM POWD.PACK PO SCH (20:51)
[2022-06-06] MEDS: risperiDONE 1 MG TAB PO SCH (21:42)
[2022-06-07] MEDS: PIPERACILLIN-TAZOBACTAM 3.375 GM in SODIUM CHLORIDE 0.9% 100 ML IVPB SCH ×3 (00:34→15:21)
[2022-06-07] MEDS: VANCOMYCIN 750 MG in SODIUM CHLORIDE 0.9% 250 ML IVPB SCH ×3 (05:01→21:07)
[2022-06-07] MEDS: APIXABAN 5 MG TAB PO SCH ×2 (05:13→15:24)
[2022-06-07] MEDS: CLOPIDOGREL 75 MG TAB PO SCH (05:13)
[2022-06-07] MEDS: clonazePAM 0.5 MG TAB PO SCH ×3 (05:13→21:09)
[2022-06-07] MEDS: risperiDONE 0.5 MG TAB PO SCH (05:14)
[2022-06-07] MEDS: VERAPAMIL 40 MG TAB PO SCH ×2 (05:14→15:24)
--- NOTE | 2022-06-07 07:04 | XR ---
EXAMINATION TYPE: XR chest 2V DATE OF EXAM: 06/07/2022 COMPARISON: Chest x-ray from yesterday HISTORY: Pneumonia progress study. TECHNIQUE: Frontal and lateral views of the chest are obtained. FINDINGS: There is persistent left greater than right mid lung and bibasilar opacities. The cardiac silhouette size is stable and mildly enlarged. Trace right pleural effusion on lateral view. The os seous structures are intact. IMPRESSION: Persistent left greater than right mid and lower lung acute infiltrates and/or edema wit h tiny right pleural effusion.
[2022-06-07] MEDS: FLUoxetine HCL 20 MG CAP PO SCH (08:23)
[2022-06-07] MEDS: SODIUM CHLORIDE 0.9% 1,000 ML IV SCH ×2 (08:24→15:25)
[2022-06-07] MEDS ORDERED: AZITHROMYCIN 500 MG TAB PO SCH (09:00)
[2022-06-07 10:52] LABS: HCT 37.3 % (37.2-46.3); HGB 11.7 g/dL (12.0-15.0); MCH 27.5 pg (27.0-32.0); MCHC 31.4 g/dL (32.0-37.0); MCV 87.8 fL (80.0-97.0); Mean Platelet Volume 10.3 fL (9.5-12.2); NRBC Per 100 WBC 0 /100 WBCS (0.0-0.0); Platelet Count 147 X 10*3/uL (140-440); RBC 4.25 X 10*6/uL (4.10-5.20); RDW 13.6 % (11.5-14.5)
--- NOTE | 2022-06-07 12:07 | P.PN ---
Subjective Progress Note Date: 06/07/22 Principal diagnosis: Aspiration pneumonia 56 year old female patient, with chronic developmental delay, resident of a local [facility] who is a poor historian, was brought into the emergency department on 06/06/2022 by ambulance for evaluation of worsening shortness of breath. Patient is nonverbal, and there is limited history available to us. Time of onset of symptoms is unclear, in the emergency department she has a low- grade fever with a temp of 99F, she is currently requiring 6 L of oxygen and she is satting 93-94%, blood pressure is 93/63, slightly congested, but appears to be in no acute distress, chest x-ray showed new left mid and lower lung acute infiltrate and right basilar Infiltrate. EKG showed sinus tachycardia. COVID- 19 and influenza A and B were negative. CBC showed normal white count of 5.5, hemoglobin 13.0, coagulation profile was unremarkable, sodium was 135, and a breast reduction lites and renal profile were within normal limits. LFTs were within normal limits, troponin was negative at less than 0.012. Initial antibiotic coverage was switched with azithromycin and Rocephin in the emergency department however was later switched to Zosyn and vancomycin for possibility of aspiration related pneumonia or healthcare acquired pneumonia. On 06/07/2022 patient is seen in follow-up on medical surgical floor. She is awake and alert, on 5 L of oxygen her pulse ox is 96-97%, does not appear to be in any acute distress. Patient continues on Zosyn and vancomycin for possibility of aspiration versus healthcare acquired pneumonia, vital signs have been stable overnight. Afebrile, blood pressure is on the lower side, 99/71, with a mean of 80. No tachycardia, no fever or chills. Chest x-ray today showing persistent left greater than right mid and lower lung acute infiltrate and/or edema with tiny right pleural effusion. Echocardiogram is pending. Today's labs have been reviewed, white blood cell count is 5.9, hemoglobin is 11.7. Objective - Vital Signs Vital signs: Vital Signs Temp 97.9 F 06/07/22 07:40 Pulse 92 06/07/22 07:40 Resp 17 06/07/22 07:40 BP 99/71 06/07/22 07:40 Pulse Ox 96 06/07/22 07:40 FiO2 Intake & Output 06/06/22 06/07/22 06/07/22 18:59 06:59 18:59 Intake Total 640 1900 240 Balance 640 1900 240 Weight 45.359 kg Intake: Intake, IV Titration 400 1850 Amount Piperacillin-Tazobactam 3 100 100 .375 gm In Sodium Chloride 0.9% 100 ml @ 25 mls/hr IVPB Q8HR [facility] Rx# :[id number] Sodium Chloride 0.9% 1, 1200 000 ml @ 100 mls/hr IV . Q10H [facility] Rx#:[id number] Vancomycin 750 mg In 250 500 Sodium Chloride 0.9% 250 ml @ 125 mls/hr IVPB Q8H [facility] Rx#:[id number] cefTRIAXone 2 gm In 50 50 Sodium Chloride 0.9% 50 ml @ 100 mls/hr IVPB Q24HR [facility] Rx#:[id number] Oral 240 50 240 Other: # Voids 3 - Exam GENERAL EXAM: Alert, 56-year-old female patient on 6 L of oxygen pulse ox of 93%, she is looking around, but she is nonverbal, does not appear to be in any acute distress HEAD: Normocephalic/atraumatic. EYES: Normal reaction of pupils, equal size. Conjunctiva pink, sclera white. NOSE: Clear with pink turbinates. THROAT: No erythema or exudates. NECK: No masses, no JVD, no thyroid enlargement, no adenopathy. CHEST: No chest wall deformity. Symmetrical expansion. LUNGS: Equal air entry with mild basilar crackles CVS: Regular rate and rhythm, normal S1 and S2, no gallops, no murmurs, no rubs ABDOMEN: Soft, nontender. No hepatosplenomegaly, normal bowel sounds, no guarding or rigidity. EXTREMITIES: No clubbing, no edema, no cyanosis, 2+ pulses and upper and lower extremities. MUSCULOSKELETAL: Muscle strength and tone normal. SPINE: No scoliosis or deformity SKIN: No rashes CENTRAL NERVOUS SYSTEM: Alert, but unable to assess orientation No focal deficits, tone is normal in all 4 extremities. - Labs CBC & Chem 7: 06/07/22 07:20 06/06/22 10:05 Labs: Abnormal Lab Results - Last 24 Hours (Table) 06/07/22 Range/Units 07:20 Hgb 11.7 L (12.0-15.0) g/dL MCHC 31.4 L (32.0-37.0) g/dL Assessment and Plan Plan: Assessment: #1. Acute hypoxic respiratory failure related to suspected acute aspiration versus healthcare acquired pneumonia. COVID-19 PCR, influenza A and B were negative #2. Chronic developmental delay, patient is nonverbal #3. Chronic psychiatric history #4. History of CVA with right-sided weakness #5. History of COVID 19 in October 2021 #6. Chronic constipation #7. Severe pulmonary hypertension with RVSP of 60 mmHg on echocardiogram from J anuary 2021 Plan: Today chest x-ray has been reviewed, showing persistent bilateral infiltrates an d small right pleural effusion Continue antibiotics Maintain aspiration precautions Pro-calcitonin level is still pending ProBNP is within normal limits Echocardiogram is pending Suspect chronic aspiration Keep the patient nothing by mouth until she is evaluated by speech therapy tomorrow I have personally seen and examined the patient, performed the documentation and the assessment and plan as written. Number of minutes spent on the visit: [15] Time with Patient: Less than 30
[2022-06-07 14:18] LABS: African American GFR (CKD) 117.5 (60.0-200.0); Albumin 3.8 g/dL (3.8-4.9); Albumin/Globulin Ratio 2.22 (1.60-3.17); Anion Gap 9.3 mmol/L (10.00-18.00); BUN/Creat Ratio 16.53 Ratio (12.00-20.00); Blood Urea Nitrogen 10.3 mg/dL (9.0-27.0); Calcium 9.1 mg/dL (8.7-10.3); Carbon Dioxide 23.7 mmol/L (20.0-27.5); Globulin 1.7 g/dL (1.6-3.3); Non-African American GFR(CKD) 101.4 (60.0-200.0); Potassium 4.4 mmol/L (3.5-5.5); Total Bilirubin 2.1 mg/dL (0.30-1.20); Total Protein 5.5 g/dL (6.2-8.2)
--- NOTE | 2022-06-07 16:07 | P.PN ---
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 [facility] with a chief complaint of respiratory difficulties. Information obtained from clinical findings, ED documentation and nursing staff as attempts were made at contacting patient's family unsuccessful and patient is nonverbal at baseline and unable to follow commands. It is unclear when onset of respiratory difficulties began or if they have been accompanied by any associated symptoms. Upon arrival to the emergency department patient was found to be hypoxic requiring oxygen supplementation and was placed on 6 L O2 via nasal cannula and SpO2 increased to 93%. In addition patient had a low-grade temp of 99.5 axillary, tachycardic at 101 bpm, tachypneic with respiratory rate of 24, and hypotensive with blood pressure of 97/62. Chest x-ray was completed showing new left mid and lower lung acute infiltrates in right basilar acute infiltrate and/or atelectasis. EKG revealed sinus tachycardia at 101 bpm with a right bundle branch block. CBC unremarkable with the exception of mild thrombocytopenia with platelet count of 145. Coags normal findings. VBG showing no significant abnormalities. CMP revealing hyponatremia with sodium of 135 and slightly elevated total bili of 1.6. Urinalysis was negative for infection. Covid PCR, influenza a, and influenza B were negative. Patient was admitted under our services with consultation to pulmonology. Physical exam: Patient seen and fully evaluated at bedside this morning. Patient's condition stable. She is currently on 5 L O2 via nasal cannula with SpO2 of 95%. RN states she will start titrating down. Blood pressure 99/71, heart rate 92, resp iratory rate 17, and temp 97.9. Repeat chest x-ray completed this morning revealing persistent left greater than right mid and lower lung acute infiltrates and/or edema with tiny right pleural effusion. Patient was resting comfortably and was easily awoken via verbal stimuli. Patient gave a thumbs up when asked how she was doing. Vital signs reviewed and stable. General: Nontoxic, no distress and appears stated age. Derm: Skin warm and dry, normal coloration for ethnicity. Head: Atraumatic, normocephalic and symmetric. Eyes: EOMs intact, no lid lag, and anicteric sclera Mouth: no lip lesions, mucus membranes moist Cardiovascular: regular rate and rhythm with normal S1S2, systolic murmur, positive posterior tibial pulses bilaterally, and cap refill < 2 seconds. Lungs: Respirations even, regular, and unlabored on 6 L O2 via nasal cannula. Lungs slightly diminished with bibasilar crackles, no rhonchi, no rales, and no wheezing noted. Patient had no accessory muscle usage. Abdominal: soft, nontender to palpation, no guarding, no appreciable organomegaly Ext: ROM intact. Patient bedridden but moving all extremities independently with no noted difficulties at this time. Patient does have right lower extremity deformity. Neuro: Speech clear, face symmetrical and CN II-XII grossly intact with no noted focal neuro deficits Psych: Patient is nonverbal. Assessment and Plan of Care: Acute respiratory failure with hypoxia secondary to pneumonia, aspiration pneumonia versus community-acquired pneumonia -Covid PCR, influenza a, and influenza B were negative. -Oxygenation to be administered and titrated as needed to maintain SPO2 equal to or greater than 92% -Telemetry monitoring. -IV antibiotics: Zosyn and vancomycin -Monitor Pulse-oximetry -Duonebs as needed for SOB and/or wheezing -Incentive Spirometry -Pulmonary following, appreciate recommendations. -Swallow evaluation by speech and language pathologist -Aspiration precautions History of thrombotic CVA of the left middle cerebral artery resulting in right- sided deficits Multiple interatrial septum seen on echocardiogram resulting in diagnosis of PFO with blkj-wf-udtsl shunting -Right-sided deficits appear to have improved as patient is moving right upper and lower extremities independently and appears to be controlled with left upper and lower extremity movements. Patient does not follow commands unable to fully assess/compare strength. -Continue Plavix and Eliquis History of Physical and developmental disability and psychiatric disorders -Nonverbal -Turn every 2 hours and provide assistance as needed. Severe pulmonary hypertension -Echocardiogram completed 12/08/21 revealing an EF of 50-55% with a moderately enlarged right atrium, severely enlarged right ventricle, severe pulmonary hypertension, and a multiple interatrial septum. -Repeat echocardiogram ordered by pulmonary. History of psychiatric disorders -Continue daily medication regimen with Klonopin, Prozac, Risperdal, Hyperlipidemia Continue daily medication regimen with atorvastatin. CODE STATUS: FULL CODE (Attempted to call and discuss with legal guardian King Garcia as well as Mary Garcia on 06/06/22 regarding patient's CODE STATUS, was unable to get a hold of either upon attempts at 11:30 AM and again at 12:43 PM. Patient was made full code by default until contact with family can be made. Additional attempt made on 06/07/22 at 4:01 PM and voicemail message was left). DVT prophylaxis: Michellquis Discussed with: RN, attempts were again made to contact patient's family unsuccessful, will try again tomorrow. Anticipated discharge date: Clinical course to determine Anticipated discharge place: Return to penitentiary A total of 33 minutes was spent on the care of this complex patient more than 50% of the time was spent in counseling and care coordination. Objective - Vital Signs Vital signs: Vital Signs Temp 97.9 F 06/07/22 07:40 Pulse 92 06/07/22 07:40 Resp 17 06/07/22 07:40 BP 99/71 06/07/22 07:40 Pulse Ox 96 06/07/22 07:40 FiO2 Intake & Output 06/06/22 06/07/22 06/07/22 18:59 06:59 18:59 Intake Total 640 1900 240 Balance 640 1900 240 Weight 45.359 kg Intake: Intake, IV Titration 400 1850 Amount Piperacillin-Tazobactam 3 100 100 .375 gm In Sodium Chloride 0.9% 100 ml @ 25 mls/hr IVPB Q8HR [facility] Rx# :[id number] Sodium Chloride 0.9% 1, 1200 000 ml @ 100 mls/hr IV . Q10H [facility] Rx#:[id number] Vancomycin 750 mg In 250 500 Sodium Chloride 0.9% 250 ml @ 125 mls/hr IVPB Q8H [facility] Rx#:[id number] cefTRIAXone 2 gm In 50 50 Sodium Chloride 0.9% 50 ml @ 100 mls/hr IVPB Q24HR [facility] Rx#:[id number] Oral 240 50 240 Other: # Voids 3 - Labs CBC & Chem 7: 06/07/22 07:20 06/07/22 07:20 Labs: Abnormal Lab Results - Last 24 Hours (Table) 06/06/22 06/06/22 Range/Units 10:05 10:05 Plt Count 145 L (150-450) k/uL Lymphocytes # (Manual) 0.28 L (1.0-4.8) k/uL Sodium 135 L (137-145) mmol/L Glucose 105 H (74-99) mg/dL Total Bilirubin 1.6 H (0.2-1.3) mg/dL Total Protein 5.9 L (6.3-8.2) g/dL
[2022-06-07] MEDS: ATORVASTATIN 20 MG TAB PO SCH (21:09)
[2022-06-07] MEDS: polyethylene glycoL 3350 17 GM POWD.PACK PO SCH (21:09)
[2022-06-07] MEDS: risperiDONE 1 MG TAB PO SCH (21:09)
[2022-06-08] MEDS: PIPERACILLIN-TAZOBACTAM 3.375 GM in SODIUM CHLORIDE 0.9% 100 ML IVPB SCH ×4 (00:28→23:25)
[2022-06-08] MEDS ORDERED: VANCOMYCIN TROUGH DUE 1 EACH MISC MISCELLANE ONE (03:00)
[2022-06-08] MEDS: VANCOMYCIN 750 MG in SODIUM CHLORIDE 0.9% 250 ML IVPB SCH ×2 (04:55→12:34)
[2022-06-08] MEDS: SODIUM CHLORIDE 0.9% 1,000 ML IV SCH ×2 (04:55→14:31)
[2022-06-08] MEDS: APIXABAN 5 MG TAB PO SCH ×2 (05:25→16:48)
[2022-06-08] MEDS: VERAPAMIL 40 MG TAB PO SCH ×2 (05:25→16:48)
[2022-06-08] MEDS: CLOPIDOGREL 75 MG TAB PO SCH (05:25)
[2022-06-08] MEDS: risperiDONE 0.5 MG TAB PO SCH (05:25)
[2022-06-08] MEDS: clonazePAM 0.5 MG TAB PO SCH ×3 (05:25→19:34)
[2022-06-08] MEDS: FLUoxetine HCL 20 MG CAP PO SCH (05:25)
[2022-06-08 09:20] LABS: HCT 34.6 % (37.2-46.3); HGB 10.7 g/dL (12.0-15.0); MCH 27.5 pg (27.0-32.0); MCHC 30.9 g/dL (32.0-37.0); MCV 88.9 fL (80.0-97.0); Mean Platelet Volume 10.7 fL (9.5-12.2); NRBC Per 100 WBC 0 /100 WBCS (0.0-0.0); Platelet Count 143 X 10*3/uL (140-440); RBC 3.89 X 10*6/uL (4.10-5.20); WBC 7.68 X 10*3/uL (4.50-10.00)
[2022-06-08 09:38] LABS: African American GFR (CKD) 126.3 (60.0-200.0); Albumin 3.6 g/dL (3.8-4.9); Albumin/Globulin Ratio 2.12 (1.60-3.17); Anion Gap 10.2 mmol/L (10.00-18.00); BUN/Creat Ratio 15.6 Ratio (12.00-20.00); Blood Urea Nitrogen 7.8 mg/dL (9.0-27.0); Calcium 9.1 mg/dL (8.7-10.3); Carbon Dioxide 22.8 mmol/L (20.0-27.5); Globulin 1.7 g/dL (1.6-3.3); Magnesium 1.9 mg/dL (1.5-2.4); Potassium 3.9 mmol/L (3.5-5.5); Total Bilirubin 1.4 mg/dL (0.30-1.20); Total Protein 5.3 g/dL (6.2-8.2)
--- NOTE | 2022-06-08 12:10 | P.PN ---
Subjective Progress Note Date: 06/08/22 Principal diagnosis: Aspiration pneumonia 56 year old female patient, with chronic developmental delay, resident of a local [facility] who is a poor historian, was brought into the emergency department on 06/06/2022 by ambulance for evaluation of worsening shortness of breath. Patient is nonverbal, and there is limited history available to us. Time of onset of symptoms is unclear, in the emergency department she has a low- grade fever with a temp of 99F, she is currently requiring 6 L of oxygen and she is satting 93-94%, blood pressure is 93/63, slightly congested, but appears to be in no acute distress, chest x-ray showed new left mid and lower lung acute infiltrate and right basilar Infiltrate. EKG showed sinus tachycardia. COVID- 19 and influenza A and B were negative. CBC showed normal white count of 5.5, hemoglobin 13.0, coagulation profile was unremarkable, sodium was 135, and a breast reduction lites and renal profile were within normal limits. LFTs were within normal limits, troponin was negative at less than 0.012. Initial antibiotic coverage was switched with azithromycin and Rocephin in the emergency department however was later switched to Zosyn and vancomycin for possibility of aspiration related pneumonia or healthcare acquired pneumonia. On 06/07/2022 patient is seen in follow-up on medical surgical floor. She is awake and alert, on 5 L of oxygen her pulse ox is 96-97%, does not appear to be in any acute distress. Patient continues on Zosyn and vancomycin for possibility of aspiration versus healthcare acquired pneumonia, vital signs have been stable overnight. Afebrile, blood pressure is on the lower side, 99/71, with a mean of 80. No tachycardia, no fever or chills. Chest x-ray today showing persistent left greater than right mid and lower lung acute infiltrate and/or edema with tiny right pleural effusion. Echocardiogram is pending. Today's labs have been reviewed, white blood cell count is 5.9, hemoglobin is 11.7. On 06/08/2022 patient seen in follow-up on medical surgical floor. She is awake and alert, she is looking around, but she is nonverbal, does not follow command, but appears to be in no acute distress, she is off of his oxygen satting 96%. Respirations are nonlabored. She's been afebrile. Blood pressures are stable. She remains on Zosyn and vancomycin for empiric antibiotic coverage, yesterday's chest x-ray shows persistent left greater than right mid and lower lung infiltrates with tiny right pleural effusion. Echocardiogram is still pending, pro-calcitonin level has been ordered and pending. Patient is suspected to be aspirating intermittently although clinically nursing staff reports no episodes of coughing or choking on food however patient eats fast. Speech therapy has been consulted for evaluation, in the meantime patient remains nothing by mouth Objective - Vital Signs Vital signs: Vital Signs Temp 98.4 F 06/08/22 07:06 Pulse 77 06/08/22 07:06 Resp 21 06/08/22 07:06 BP 90/58 06/08/22 07:06 Pulse Ox 96 06/08/22 07:34 FiO2 Intake & Output 06/07/22 06/08/22 06/08/22 18:59 06:59 18:59 Intake Total 590 350 Balance 590 350 Intake: Intake, IV Titration 350 350 Amount Piperacillin-Tazobactam 3 100 100 .375 gm In Sodium Chloride 0.9% 100 ml @ 25 mls/hr IVPB Q8HR [facility] Rx# :[id number] Vancomycin 750 mg In 250 250 Sodium Chloride 0.9% 250 ml @ 125 mls/hr IVPB Q8H [facility] Rx#:[id number] Oral 240 Other: # Voids 5 1 1 # Bowel Movements 2 - Exam GENERAL EXAM: Alert, 56-year-old female patient on 5 L of oxygen pulse ox of 96- 99%, she is looking around, but she is nonverbal, does not appear to be in any acute distress HEAD: Normocephalic/atraumatic. EYES: Normal reaction of pupils, equal size. Conjunctiva pink, sclera white. NOSE: Clear with pink turbinates. THROAT: No erythema or exudates. NECK: No masses, no JVD, no thyroid enlargement, no adenopathy. CHEST: No chest wall deformity. Symmetrical expansion. LUNGS: Equal air entry with mild basilar crackles CVS: Regular rate and rhythm, normal S1 and S2, no gallops, no murmurs, no rubs ABDOMEN: Soft, nontender. No hepatosplenomegaly, normal bowel sounds, no gu arding or rigidity. EXTREMITIES: No clubbing, no edema, no cyanosis, 2+ pulses and upper and lower e xtremities. MUSCULOSKELETAL: Muscle strength and tone normal. SPINE: No scoliosis or deformity SKIN: No rashes CENTRAL NERVOUS SYSTEM: Alert, but unable to assess orientation No focal deficits, tone is normal in all 4 extremities. - Labs CBC & Chem 7: 06/08/22 02:34 06/08/22 02:34 Labs: Abnormal Lab Results - Last 24 Hours (Table) 06/07/22 06/08/22 06/08/22 Range/Units 07:20 02:34 02:34 RBC 3.89 L (4.10-5.20) X 10*6/uL Hgb 10.7 L (12.0-15.0) g/dL Hct 34.6 L (37.2-46.3) % MCHC 30.9 L (32.0-37.0) g/dL Anion Gap 9.30 L (10.00-18.00) mmol/L BUN 7.8 L (9.0-27.0) mg/dL Creatinine 0.5 L (0.6-1.5) mg/dL Total Bilirubin 2.10 H 1.40 H (0.30-1.20) mg/dL Total Protein 5.5 L 5.3 L (6.2-8.2) g/dL Albumin 3.6 L (3.8-4.9) g/dL Microbiology - Last 24 Hours (Table) 06/06/22 09:45 Blood Culture - Preliminary Blood No Growth after 24 hours 06/06/22 10:00 Blood Culture - Preliminary Blood No Growth after 24 hours Assessment and Plan Plan: Assessment: #1. Acute hypoxic respiratory failure related to suspected acute aspiration versus healthcare acquired pneumonia. COVID-19 PCR, influenza A and B were negative #2. Chronic developmental delay, patient is nonverbal #3. Chronic psychiatric history #4. History of CVA with right-sided weakness #5. History of COVID 19 in October 2021 #6. Chronic constipation #7. Severe pulmonary hypertension with RVSP of 60 mmHg on echocardiogram from November 2021 Plan: Speech therapy evaluation is pending Patient is nothing by mouth Awaiting procalcitonin level We can discontinue the vancomycin, continue on Zosyn Echocardiogram is pending Clinically stable, Wean FiO2 Maintain aspiration precautions I have personally seen and examined the patient, performed the documentation and the assessment and plan as written. Number of minutes spent on the visit: [15] Time with Patient: Less than 30
--- NOTE | 2022-06-08 15:07 | P.PN ---
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 Patient presented to the emergency department from intermediate with a chief complaint of respiratory difficulties. Information obtained from clinical findings, ED documentation and nursing staff as attempts were made at contacting patient's family unsuccessful and patient is nonverbal at baseline and unable to follow commands. It is unclear when onset of respiratory difficulties began or if they have been accompanied by any associated symptoms. Upon arrival to the emergency department patient was found to be hypoxic requiring oxygen supplementation and was placed on 6 L O2 via nasal cannula and SpO2 increased to 93%. In addition patient had a low-grade temp of 99.5 axillary, tachycardic at 101 bpm, tachypneic with respiratory rate of 24, and hypotensive with blood pressure of 97/62. Chest x-ray was completed showing new left mid and lower lung acute infiltrates in right basilar acute infiltrate and/or atelectasis. EKG revealed sinus tachycardia at 101 bpm with a right bundle branch block. CBC unremarkable with the exception of mild thrombocytopenia with platelet count of 145. Coags normal findings. VBG showing no significant abnormalities. CMP revealing hyponatremia with sodium of 135 and slightly elevated total bili of 1.6. Urinalysis was negative for infection. Covid PCR, influenza a, and influenza B were negative. Patient was started on IV antibiotics vancomycin and Zosyn and admitted under our services with consultation to pulmonology and speech and language pathologist. Physical exam: Patient seen and fully evaluated at bedside this morning. She is awake and alert and doing well. Her oxygen saturations were 99% on 5 L. Discussed with RN need to titrate oxygen down to maintain SpO2 greater than 90%. Respirations are even, regular, and unlabored. Patient was alert and showing no signs of acute distress, she followed commands and again gave a thumbs up when asked how she was feeling. Vital signs have been stable. Maximum temperature overnight was 99.1F. Patient has been receiving Zosyn and vancomycin for treatment of suspected aspiration pneumonia, she is currently awaiting evaluation by speech and language pathologist for recommended swallow eval. At this time patient to remain on aspiration precautions. Vital signs reviewed and stable. General: Nontoxic, no distress and appears stated age. Derm: Skin warm and dry, normal coloration for ethnicity. Head: Atraumatic, normocephalic and symmetric. Eyes: EOMs intact, no lid lag, and anicteric sclera Mouth: no lip lesions, mucus membranes moist Cardiovascular: regular rate and rhythm with normal S1S2, systolic murmur, positive posterior tibial pulses bilaterally, and cap refill < 2 seconds. Lungs: Respirations even, regular, and unlabored on 6 L O2 via nasal cannula. Lungs slightly diminished with bibasilar crackles, no rhonchi, no rales, and no wheezing noted. Patient had no accessory muscle usage. Abdominal: soft, nontender to palpation, no guarding, no appreciable organomegaly Ext: ROM intact. Patient bedridden but moving all extremities independently with no noted difficulties at this time. Patient does have right lower extremity deformity. Neuro: Speech clear, face symmetrical and CN II-XII grossly intact with no noted focal neuro deficits Psych: Patient is nonverbal. Assessment and Plan of Care: Acute respiratory failure with hypoxia secondary to pneumonia, aspiration pneumonia versus community-acquired pneumonia -Covid PCR, influenza a, and influenza B were negative. -Oxygenation to be administered and titrated as needed to maintain SPO2 equal to or greater than 92% -Telemetry monitoring. -IV antibiotics: Zosyn and vancomycin -Monitor Pulse-oximetry -Duonebs as needed for SOB and/or wheezing -Incentive Spirometry -Pulmonary following, appreciate recommendations. -Swallow evaluation by speech and language pathologist -Aspiration precautions History of thrombotic CVA of the left middle cerebral artery resulting in right- sided deficits Multiple interatrial septum seen on echocardiogram resulting in diagnosis of PFO with sero-vm-ikzgx shunting -Right-sided deficits appear to have improved as patient is moving right upper and lower extremities independently and appears to be controlled with left upper and lower extremity movements. Patient does not follow commands unable to fully assess/compare strength. -Continue Plavix and Eliquis History of Physical and developmental disability and psychiatric disorders -Nonverbal -Turn every 2 hours and provide assistance as needed. Severe pulmonary hypertension -Echocardiogram completed 12/08/21 revealing an EF of 50-55% with a moderately enlarged right atrium, severely enlarged right ventricle, severe pulmonary hyp ertension, and a multiple interatrial septum. -Repeat echocardiogram completed and pending results.. History of psychiatric disorders -Continue daily medication regimen with Klonopin, Prozac, Risperdal, Hyperlipidemia Continue daily medication regimen with atorvastatin. CODE STATUS: FULL CODE (Attempted to call and discuss with legal guardian King Garcia as well as Mary Garcia on 06/06/22 regarding patient's CODE STATUS, was unable to get a hold of either upon attempts at 11:30 AM and again at 12:43 PM. Patient was made full code by default until contact with family can be made. Additional attempt made on 06/07/22 at 4:01 PM and voicemail message was left). DVT prophylaxis: Eliquis Discussed with: RN, attempts were again made to contact patient's family unsuccessful, will try again tomorrow. Anticipated discharge date: Clinical course to determine Anticipated discharge place: Return to intermediate A total of 31 minutes was spent on the care of this complex patient more than 50 % of the time was spent in counseling and care coordination. Objective - Vital Signs Vital signs: Vital Signs Temp 98.4 F 06/08/22 07:06 Pulse 77 06/08/22 07:06 Resp 21 06/08/22 07:06 BP 90/58 06/08/22 07:06 Pulse Ox 96 06/08/22 07:34 FiO2 Intake & Output 06/07/22 06/08/22 06/08/22 18:59 06:59 18:59 Intake Total 590 350 Balance 590 350 Intake: Intake, IV Titration 350 350 Amount Piperacillin-Tazobactam 3 100 100 .375 gm In Sodium Chloride 0.9% 100 ml @ 25 mls/hr IVPB Q8HR [facility] Rx# :[id number] Vancomycin 750 mg In 250 250 Sodium Chloride 0.9% 250 ml @ 125 mls/hr IVPB Q8H [facility] Rx#:[id number] Oral 240 Other: # Voids 5 1 1 # Bowel Movements 2 - Labs CBC & Chem 7: 06/08/22 02:34 06/08/22 02:34 Labs: Abnormal Lab Results - Last 24 Hours (Table) 06/07/22 06/07/22 Range/Units 07:20 07:20 Hgb 11.7 L (12.0-15.0) g/dL MCHC 31.4 L (32.0-37.0) g/dL Anion Gap 9.30 L (10.00-18.00) mmol/L Total Bilirubin 2.10 H (0.30-1.20) mg/dL Total Protein 5.5 L (6.2-8.2) g/dL Microbiology - Last 24 Hours (Table) 06/06/22 09:45 Blood Culture - Preliminary Blood No Growth after 24 hours 06/06/22 10:00 Blood Culture - Preliminary Blood No Growth after 24 hours
--- NOTE | 2022-06-08 17:46 | CA ---
Transthoracic Echo Report Name: Dinora Garcia Age: 57 Gender: F : 1965 Exam Date: 06/08/2022 11:55 Exam Location: [facility] Ht (in): 60 Wt (lb): 100 Ordering Physician: Rosibel Lyn Attending/Referring Phys: [id number], Riki [employer] Maker Dina Hurt RDCS Procedure CPT: Indications: SHORTNESS OF BREATH Cardiac Hx: Technical Quality: Good Contrast 1: Total Dose (mL): Contrast 2: Total Dose (mL): MEASUREMENTS (Male / Female) Normal Values 2D ECHO LV Diastolic Diameter PLAX 3.8 cm 4.2 - 5.9 / 3.9 - 5.3 cm LV Systolic Diameter PLAX 1.7 cm IVS Diastolic Thickness 0.5 cm 0.6 - 1.0 / 0.6 - 0.9 cm LVPW Diastolic Thickness 0.7 cm 0.6 - 1.0 / 0.6 - 0.9 cm LV Relative Wall Thickness 0.3 RV Internal Dim ED PLAX 4.1 cm M-MODE Aortic Root Diameter MM 2.6 cm LA Systolic Diameter MM 3.6 cm LA Ao Ratio MM 1.4 MV E Point Septal Separation 0.8 cm AV Cusp Separation MM 1.8 cm DOPPLER TR Peak Velocity 202.4 cm/s TR Peak Gradient 16.4 mmHg Right Ventricular Systolic Press 21.4 mmHg FINDINGS Left Ventricle Left ventricular ejection fraction is estimated at 55-60 %. Limited study pt combative. Right Ventricle Moderate right ventricular dilatation. Right ventricular systolic pressure within normal limits. RV overload Right Atrium Left Atrium Mitral Valve Mild mitral regurgitation. Mild MVP Aortic Valve Tricuspid Valve Pulmonic Valve Pericardium Aorta CONCLUSIONS 1. Normal size and systolic function 2. Dilated right ventricle with normal right-sided pressure 3. Mild mitral regurgitation with mitral valve prolapse. Previewed by: Dr. Dmitry Ibarra MD (Electronically Signed) Final Date: 08 June 2022 17:45
[2022-06-08] MEDS: ATORVASTATIN 20 MG TAB PO SCH (19:34)
[2022-06-08] MEDS: risperiDONE 1 MG TAB PO SCH (19:34)
[2022-06-08] MEDS: polyethylene glycoL 3350 17 GM POWD.PACK PO SCH (19:37)
[2022-06-09] MEDS: SODIUM CHLORIDE 0.9% 1,000 ML IV SCH ×2 (01:39→12:01)
[2022-06-09] MEDS: clonazePAM 0.5 MG TAB PO SCH ×3 (05:57→20:12)
[2022-06-09] MEDS: CLOPIDOGREL 75 MG TAB PO SCH (05:57)
[2022-06-09] MEDS: risperiDONE 0.5 MG TAB PO SCH (05:57)
[2022-06-09] MEDS: APIXABAN 5 MG TAB PO SCH ×2 (05:57→17:50)
[2022-06-09] MEDS: VERAPAMIL 40 MG TAB PO SCH (05:59)
[2022-06-09] MEDS: FLUoxetine HCL 20 MG CAP PO SCH (07:30)
[2022-06-09] MEDS: PIPERACILLIN-TAZOBACTAM 3.375 GM in SODIUM CHLORIDE 0.9% 100 ML IVPB SCH (07:30)
[2022-06-09 10:40] LABS: HCT 34.7 % (37.2-46.3); HGB 10.8 g/dL (12.0-15.0); MCH 27.5 pg (27.0-32.0); MCHC 31.1 g/dL (32.0-37.0); MCV 88.3 fL (80.0-97.0); Mean Platelet Volume 10.2 fL (9.5-12.2); NRBC Per 100 WBC 0 /100 WBCS (0.0-0.0); Platelet Count 149 X 10*3/uL (140-440); RBC 3.93 X 10*6/uL (4.10-5.20); RDW 13.7 % (11.5-14.5); WBC 7.26 X 10*3/uL (4.50-10.00)
[2022-06-09 11:01] LABS: African American GFR (CKD) 118.9 (60.0-200.0); Albumin 3.5 g/dL (3.8-4.9); Albumin/Globulin Ratio 2.06 (1.60-3.17); Anion Gap 8.2 mmol/L (10.00-18.00); BUN/Creat Ratio 17.67 Ratio (12.00-20.00); Blood Urea Nitrogen 10.6 mg/dL (9.0-27.0); Carbon Dioxide 25.8 mmol/L (20.0-27.5); Globulin 1.7 g/dL (1.6-3.3); Non-African American GFR(CKD) 102.6 (60.0-200.0); Potassium 3.9 mmol/L (3.5-5.5); Total Bilirubin 1.7 mg/dL (0.30-1.20); Total Protein 5.2 g/dL (6.2-8.2)
--- NOTE | 2022-06-09 11:54 | P.PN ---
Subjective Progress Note Date: 06/09/22 Principal diagnosis: Aspiration pneumonia 56 year old female patient, with chronic developmental delay, resident of a local long term who is a poor historian, was brought into the emergency department on 06/06/2022 by ambulance for evaluation of worsening shortness of breath. Patient is nonverbal, and there is limited history available to us. Time of onset of symptoms is unclear, in the emergency department she has a low- grade fever with a temp of 99F, she is currently requiring 6 L of oxygen and she is satting 93-94%, blood pressure is 93/63, slightly congested, but appears to be in no acute distress, chest x-ray showed new left mid and lower lung acute infiltrate and right basilar Infiltrate. EKG showed sinus tachycardia. COVID- 19 and influenza A and B were negative. CBC showed normal white count of 5.5, hemoglobin 13.0, coagulation profile was unremarkable, sodium was 135, and a breast reduction lites and renal profile were within normal limits. LFTs were within normal limits, troponin was negative at less than 0.012. Initial antibiotic coverage was switched with azithromycin and Rocephin in the emergency department however was later switched to Zosyn and vancomycin for possibility of aspiration related pneumonia or healthcare acquired pneumonia. On 06/07/2022 patient is seen in follow-up on medical surgical floor. She is awake and alert, on 5 L of oxygen her pulse ox is 96-97%, does not appear to be in any acute distress. Patient continues on Zosyn and vancomycin for possibility of aspiration versus healthcare acquired pneumonia, vital signs have been stable overnight. Afebrile, blood pressure is on the lower side, 99/71, with a mean of 80. No tachycardia, no fever or chills. Chest x-ray today showing persistent left greater than right mid and lower lung acute infiltrate and/or edema with tiny right pleural effusion. Echocardiogram is pending. Today's labs have been reviewed, white blood cell count is 5.9, hemoglobin is 11.7. On 06/08/2022 patient seen in follow-up on medical surgical floor. She is awake and alert, she is looking around, but she is nonverbal, does not follow command, but appears to be in no acute distress, she is off of his oxygen satting 96%. Respirations are nonlabored. She's been afebrile. Blood pressures are stable. She remains on Zosyn and vancomycin for empiric antibiotic coverage, yesterday's chest x-ray shows persistent left greater than right mid and lower lung infiltrates with tiny right pleural effusion. Echocardiogram is still pending, pro-calcitonin level has been ordered and pending. Patient is suspected to be aspirating intermittently although clinically nursing staff reports no episodes of coughing or choking on food however patient eats fast. Speech therapy has been consulted for evaluation, in the meantime patient remains nothing by mouth. On 06/09/2022 patient seen in follow-up on medical surgical floor. Patient was seen by speech therapist and passed her bedside swallow evaluation. She's been cleared for oral feedings with the recommendation of providing the patient a smaller spoon. She is currently on 2 L of oxygen pulse ox 95%, she is afebrile, doesn't appear to be in any respiratory distress, echocardiogram has been completed showing preserved EF of 55-60% was a limited study as the patient was combative at the time. Moderate right ventricular dilatation, right ventricular systolic pressure was within normal limits, the conclusion was normal size and systolic function, mild MR, with mitral valve prolapse. Clinically patient is stable, her appetite is excellent. No acute events overnight. We'll obtain follow-up chest x-ray today, today's labs have also been reviewed Objective - Vital Signs Vital signs: Vital Signs Temp 98.7 F 06/09/22 07:04 Pulse 75 06/09/22 07:30 Resp 17 06/09/22 07:04 BP 94/60 06/09/22 07:30 Pulse Ox 95 06/09/22 08:25 FiO2 Intake & Output 06/08/22 06/09/22 06/09/22 18:59 06:59 18:59 Intake Total 240 180 Balance 240 180 Intake: Oral 240 180 Other: # Voids 2 3 - Exam GENERAL EXAM: Alert, 56-year-old female patient on 2 L of oxygen pulse ox of 96- 99%, she is looking around, but she is nonverbal, does not appear to be in any acute distress HEAD: Normocephalic/atraumatic. EYES: Normal reaction of pupils, equal size. Conjunctiva pink, sclera white. NOSE: Clear with pink turbinates. THROAT: No erythema or exudates. NECK: No masses, no JVD, no thyroid enlargement, no adenopathy. CHEST: No chest wall deformity. Symmetrical expansion. LUNGS: Equal air entry with mild basilar crackles CVS: Regular rate and rhythm, normal S1 and S2, no gallops, no murmurs, no rubs ABDOMEN: Soft, nontender. No hepatosplenomegaly, normal bowel sounds, no guarding or rigidity. EXTREMITIES: No clubbing, no edema, no cyanosis, 2+ pulses and upper and lower extremities. MUSCULOSKELETAL: Muscle strength and tone normal. SPINE: No scoliosis or deformity SKIN: No rashes CENTRAL NERVOUS SYSTEM: Alert, but unable to assess orientation No focal deficits, tone is normal in all 4 extremities. - Labs CBC & Chem 7: 06/09/22 06:36 06/09/22 06:36 Labs: Abnormal Lab Results - Last 24 Hours (Table) 06/09/22 06/09/22 Range/Units 06:36 06:36 RBC 3.93 L (4.10-5.20) X 10*6/uL Hgb 10.8 L (12.0-15.0) g/dL Hct 34.7 L (37.2-46.3) % MCHC 31.1 L (32.0-37.0) g/dL Anion Gap 8.20 L (10.00-18.00) mmol/L Total Bilirubin 1.70 H (0.30-1.20) mg/dL AST 11 L (13-35) U/L Total Protein 5.2 L (6.2-8.2) g/dL Albumin 3.5 L (3.8-4.9) g/dL Microbiology - Last 24 Hours (Table) 06/06/22 09:45 Blood Culture - Preliminary Blood No Growth after 48 hours 06/06/22 10:00 Blood Culture - Preliminary Blood No Growth after 48 hours Assessment and Plan Plan: Assessment: #1. Acute hypoxic respiratory failure related to suspected acute aspiration versus healthcare acquired pneumonia. COVID-19 PCR, influenza A and B were negative #2. Chronic developmental delay, patient is nonverbal #3. Chronic psychiatric history #4. History of CVA with right-sided weakness #5. History of COVID 19 in October 2021 #6. Chronic constipation #7. Severe pulmonary hypertension with RVSP of 60 mmHg on echocardiogram from November 2021 Plan: Continue aspiration precautions Speech Therapy evaluation was completed and patient passed that With the recommendation to provide the patient a smaller spoon to eat with Zosyn can be switched over to Augmentin for 6 more days Vancomycin has been discontinued Vitals have been stable Continue weaning FiO2 Follow-up chest x-ray Echocardiogram results have been noted DC IV fluids She could be considered for discharge back to the long term possibly in the next 24 hours I have personally seen and examined the patient, performed the documentation and the assessment and plan as written. Number of minutes spent on the visit: [15] Time with Patient: Less than 30
[2022-06-09] MEDS ORDERED: VERAPAMIL 40 MG TAB PO PRN (16:40)
--- NOTE | 2022-06-09 16:53 | P.PN ---
Progress Note - Text Progress Note Date: 06/09/22 Ms. Garcia was seen and examined. She is nonverbal and a poor historian. She appears comfortable. Vitals: Reviewed General: Frail-appearing lady HEENT: Mucous membranes moist, neck supple Cardiovascular: RRR, S1-S2 Lungs: Breath sounds equal and clear to auscultation bilaterally. Diminished with scattered rhonchi Abdomen: Soft, nontender, nondistended Extremities: No lower extremity edema Lab data reviewed Assessment and plan 1. Acute hypoxic respiratory failure secondary to bilateral pneumonia Likely aspiration pneumonia. Previously on IV vancomycin Zosyn now transitioned to Augmentin.. Wean down oxygen as tolerated. Encourage incentive spirometer use. 2. History of CVA with residual right-sided weakness, history of PFO Continue statin and Plavix. She is on eliquis, unclear why 3. Severe pulmonary hypertension Unclear etiology 4. Unspecified psych disorder Continue with home psych medications 5. Hyperlipidemia Continue with statin 6. History of hypertension Has been hypotensive, hold verapamil-we will use as needed for heart rate if she has rebound tachycardia. Instructed to hold if SBP less than 110. DVT prophylaxis with eliquis Full code Disposition: If she needs remain stable, likely discharge tomorrow
[2022-06-09] MEDS: ATORVASTATIN 20 MG TAB PO SCH (20:12)
[2022-06-09] MEDS: polyethylene glycoL 3350 17 GM POWD.PACK PO SCH (20:12)
[2022-06-09] MEDS: AMOXIC-POT CLAV 875-125MG 1 EACH TAB PO SCH (20:13)
[2022-06-09] MEDS: risperiDONE 1 MG TAB PO SCH (20:13)
[2022-06-10] MEDS: clonazePAM 0.5 MG TAB PO SCH ×3 (05:30→21:06)
[2022-06-10] MEDS: CLOPIDOGREL 75 MG TAB PO SCH (05:30)
[2022-06-10] MEDS: APIXABAN 5 MG TAB PO SCH ×2 (05:30→15:50)
[2022-06-10] MEDS: risperiDONE 0.5 MG TAB PO SCH (05:30)
[2022-06-10] MEDS: FLUoxetine HCL 20 MG CAP PO SCH (08:18)
[2022-06-10] MEDS: AMOXIC-POT CLAV 875-125MG 1 EACH TAB PO SCH (08:19)
--- NOTE | 2022-06-10 09:15 | CDI ---
Documentation Clarification Form Date: 06/10/2022 08:51:49 AM From: Ольга Blake RN, CCDS Phone: [phone] Admit Date: 06/06/2022 11:09:00 AM Patient Name: Dinora Garcia Visit Number: [id number] Discharge Date: ATTENTION: The Clinical Documentation Specialists (CDI) and [facility] Coding Staff appreciate your assistance in clarifying documentation. Please respond to the clarification below the line at the bottom and electronically sign. The CDI & [facility] Coding staff will review the response and follow-up if needed. Please note: Queries are made part of the Legal Health Record. If you have any questions, please contact the author of this message via ITS. Dr. Sara Wright The patient presented with the following clinical indicators. Additional clarification regarding the etiology/cause of the clinical indicators is requested. History/Risk Factors: Mentally delayed, CVA, Clinical Indicators: 56-year-old male present concerns for patient's breathing, altered mental status. 06/06 ED assessment Lungs rales, with mild tachypnea. Patient does meet sepsis criteria diagnosed at 10:55 AM. 06/06 WBC: 5.5 06/06 Lactic acid: 1.3 06/06 Blood cultures: No growth after 72 hours 06/06 EKG; Sinus tachycardia at 101 bpm 06/06 CXR: new left mid and lower lung acute infiltrates. Possibly right lower lobe infiltrate 06/06 Vital signs: 97/62 101 24 99.5 (AX) 90% 4/l NC; 90/60 93 18 99 93 % 6/L NC Treatment: Medical/Telemetry monitoring Zosyn 3.375 GM IVPB Q 8 Hours 06/06-06/09, Vancomycin 750 MG IVPB (PTD) 06/06-06/08 Augmentin 875-125 PO Q 12 HR 06/09 Duoneb 0.5 MG-3MG/3ML Marley Q4 PRN 06/06 In your professional opinion, please clarify if these findings signify one of the following conditions: [ ] Sepsis POA [ ] Sepsis ruled out [ ] Other, please specify [ ] Unable to determine SIRS Criteria: 2 or more of the following may indicate SIRS -Temperature < 96.8F (36C) or > 101.0F (38.3C) -Heart Rate > 90 bpm -Respiratory Rate > 20 breaths/min or PaCO2 < 32 mmHg -White Blood Cell Count > 12,000 or < 4,000 cells/mm3 or > 10% bands (Template Last Reviewed: December 2020) No [facility] MTDD
--- NOTE | 2022-06-10 11:40 | XR ---
EXAMINATION TYPE: XR chest 1V portable DATE OF EXAM: 06/10/2022 HISTORY: Shortness of breath. COMPARISON: 06/07/2022 TECHNIQUE: Single view of the chest is submitted. FINDINGS: Demonstrated are scattered senescent parenchymal change. Persistent perihilar and basilar infiltrates. Continued pulmonary venous congestion and cardiomegaly. Hilar and mediastinal structures are within normal limits. Degenerative changes are seen of the dorsal spine. IMPRESSION: 1. Essentially stable chest.
--- NOTE | 2022-06-10 11:42 | P.PN ---
Subjective Progress Note Date: 06/10/22 Principal diagnosis: Aspiration pneumonia 56 year old female patient, with chronic developmental delay, resident of a local half-way who is a poor historian, was brought into the emergency department on 06/06/2022 by ambulance for evaluation of worsening shortness of breath. Patient is nonverbal, and there is limited history available to us. Time of onset of symptoms is unclear, in the emergency department she has a low- grade fever with a temp of 99F, she is currently requiring 6 L of oxygen and she is satting 93-94%, blood pressure is 93/63, slightly congested, but appears to be in no acute distress, chest x-ray showed new left mid and lower lung acute infiltrate and right basilar Infiltrate. EKG showed sinus tachycardia. COVID- 19 and influenza A and B were negative. CBC showed normal white count of 5.5, hemoglobin 13.0, coagulation profile was unremarkable, sodium was 135, and a breast reduction lites and renal profile were within normal limits. LFTs were within normal limits, troponin was negative at less than 0.012. Initial antibiotic coverage was switched with azithromycin and Rocephin in the emergency department however was later switched to Zosyn and vancomycin for possibility of aspiration related pneumonia or healthcare acquired pneumonia. On 06/07/2022 patient is seen in follow-up on medical surgical floor. She is awake and alert, on 5 L of oxygen her pulse ox is 96-97%, does not appear to be in any acute distress. Patient continues on Zosyn and vancomycin for possibility of aspiration versus healthcare acquired pneumonia, vital signs have been stable overnight. Afebrile, blood pressure is on the lower side, 99/71, with a mean of 80. No tachycardia, no fever or chills. Chest x-ray today showing persistent left greater than right mid and lower lung acute infiltrate and/or edema with tiny right pleural effusion. Echocardiogram is pending. Today's labs have been reviewed, white blood cell count is 5.9, hemoglobin is 11.7. On 06/08/2022 patient seen in follow-up on medical surgical floor. She is awake and alert, she is looking around, but she is nonverbal, does not follow command, but appears to be in no acute distress, she is off of his oxygen satting 96%. Respirations are nonlabored. She's been afebrile. Blood pressures are stable. She remains on Zosyn and vancomycin for empiric antibiotic coverage, yesterday's chest x-ray shows persistent left greater than right mid and lower lung infiltrates with tiny right pleural effusion. Echocardiogram is still pending, pro-calcitonin level has been ordered and pending. Patient is suspected to be aspirating intermittently although clinically nursing staff reports no episodes of coughing or choking on food however patient eats fast. Speech therapy has been consulted for evaluation, in the meantime patient remains nothing by mouth. On 06/09/2022 patient seen in follow-up on medical surgical floor. Patient was seen by speech therapist and passed her bedside swallow evaluation. She's been cleared for oral feedings with the recommendation of providing the patient a smaller spoon. She is currently on 2 L of oxygen pulse ox 95%, she is afebrile, doesn't appear to be in any respiratory distress, echocardiogram has been completed showing preserved EF of 55-60% was a limited study as the patient was combative at the time. Moderate right ventricular dilatation, right ventricular systolic pressure was within normal limits, the conclusion was normal size and systolic function, mild MR, with mitral valve prolapse. Clinically patient is stable, her appetite is excellent. No acute events overnight. We'll obtain follow-up chest x-ray today, today's labs have also been reviewed On 06/10/2022 patient seen in follow-up on medical surgical floor. She is resting comfortably in bed, she is currently on 2 L of oxygen satting 95%, does not appear to be in any acute distress, no signs of any respiratory difficulty, breathing comfortably, she has had no fever or chills, vital signs have been stable. No acute events overnight, follow-up chest x-rays pending for today. She has been treated with Zosyn and vancomycin, vancomycin has been discontinued couple days ago, there has been no growth on the cultures. Patient has been transitioned to oral antibiotics yesterday, today's labs are still pending, yesterday's labs showed normal white count, hemoglobin of 10.8, electrolytes and renal profile were unremarkable, patient passed swallow evaluation, clinically has been stable, her appetite is excellent, no nausea vomiting or diarrhea. She is anticipated for possible discharge back to her half-way today Objective - Vital Signs Vital signs: Vital Signs Temp 98.5 F 06/10/22 06:57 Pulse 115 H 06/10/22 09:59 Resp 16 06/10/22 06:57 BP 106/74 06/10/22 06:57 Pulse Ox 95 06/10/22 09:59 FiO2 Intake & Output 06/09/22 06/10/22 06/10/22 18:59 06:59 18:59 Intake Total 600 180 Output Total 500 300 Balance 600 -500 -120 Intake: Oral 600 180 Output: Urine 500 300 Other: # Voids 2 2 # Bowel Movements 1 - Exam GENERAL EXAM: Alert, 56-year-old female patient on 2 L of oxygen pulse ox of 96- 99%, she is looking around, but she is nonverbal, does not appear to be in any acute distress HEAD: Normocephalic/atraumatic. EYES: Normal reaction of pupils, equal size. Conjunctiva pink, sclera white. NOSE: Clear with pink turbinates. THROAT: No erythema or exudates. NECK: No masses, no JVD, no thyroid enlargement, no adenopathy. CHEST: No chest wall deformity. Symmetrical expansion. LUNGS: Equal air entry with mild basilar crackles CVS: Regular rate and rhythm, normal S1 and S2, no gallops, no murmurs, no rubs ABDOMEN: Soft, nontender. No hepatosplenomegaly, normal bowel sounds, no guarding or rigidity. EXTREMITIES: No clubbing, no edema, no cyanosis, 2+ pulses and upper and lower extremities. MUSCULOSKELETAL: Muscle strength and tone normal. SPINE: No scoliosis or deformity SKIN: No rashes CENTRAL NERVOUS SYSTEM: Alert, but unable to assess orientation No focal deficits, tone is normal in all 4 extremities. - Labs CBC & Chem 7: 06/09/22 06:36 06/09/22 06:36 Labs: Microbiology - Last 24 Hours (Table) 06/06/22 09:45 Blood Culture - Preliminary Blood No Growth after 72 hours 06/06/22 10:00 Blood Culture - Preliminary Blood No Growth after 72 hours Assessment and Plan Plan: Assessment: #1. Acute hypoxic respiratory failure related to suspected acute aspiration versus healthcare acquired pneumonia. COVID-19 PCR, influenza A and B were negative #2. Chronic developmental delay, patient is nonverbal #3. Chronic psychiatric history #4. History of CVA with right-sided weakness #5. History of COVID 19 in October 2021 #6. Chronic constipation #7. Severe pulmonary hypertension with RVSP of 60 mmHg on echocardiogram from November 2021 Plan: Patient has remained stable No acute events overnight Breathing comfortably, We'll try the patient on room air and obtain home oxygen assessment IV antibiotics have been transitioned to oral Augmentin Patient passed swallow evaluation but requires supervision She came to consider discharge back to the half-way today I have personally seen and examined the patient, performed the documentation and the assessment and plan as written. Number of minutes spent on the visit: [15] Time with Patient: Less than 30
[2022-06-10] MEDS: VERAPAMIL 40 MG TAB PO SCH ×2 (11:52→15:50)
--- NOTE | 2022-06-10 13:45 | P.PN ---
Progress Note - Text Progress Note Date: 06/10/22 CC: Nonverbal Ms. Garcia was seen and examined. Poor historian and she is nonverbal. She appears comfortable and not in any respiratory distress. She is afebrile currently medically stable. Vitals: Reviewed General: Frail-appearing lady HEENT: Mucous membranes moist, neck supple Cardiovascular: RRR, S1-S2 Lungs: Breath sounds equal and clear to auscultation bilaterally. Diminished with scattered rhonchi Abdomen: Soft, nontender, nondistended Extremities: No lower extremity edema Lab data reviewed Assessment and plan 1. Acute hypoxic respiratory failure secondary to bilateral pneumonia Likely aspiration pneumonia. Previously on IV vancomycin Zosyn now transitioned to Augmentin.. Wean down oxygen as tolerated. Encourage incentive spirometer use. 2. History of CVA with residual right-sided weakness, history of PFO Continue statin and Plavix. She is on eliquis, unclear why 3. Severe pulmonary hypertension Unclear etiology 4. Unspecified psych disorder Continue with home psych medications 5. Hyperlipidemia Continue with statin 6. History of hypertension Verapamil was held for borderline blood pressures. Heart rate increased once verapamil held therefore we will continue since blood pressures improved. DVT prophylaxis with eliquis Full code Disposition: CM to inquire and inform me if [facility] able to accept her today.
[2022-06-10] MEDS: polyethylene glycoL 3350 17 GM POWD.PACK PO SCH (21:05)
[2022-06-10] MEDS: risperiDONE 1 MG TAB PO SCH (21:06)
[2022-06-10] MEDS: ATORVASTATIN 20 MG TAB PO SCH (21:06)
[2022-06-11] MEDS: AMOXIC-POT CLAV 875-125MG 1 EACH TAB PO SCH ×2 (01:48→08:08)
[2022-06-11] MEDS: CLOPIDOGREL 75 MG TAB PO SCH (05:46)
[2022-06-11] MEDS: FLUoxetine HCL 20 MG CAP PO SCH (05:46)
[2022-06-11] MEDS: clonazePAM 0.5 MG TAB PO SCH ×2 (05:46→15:34)
[2022-06-11] MEDS: APIXABAN 5 MG TAB PO SCH ×2 (05:46→16:36)
[2022-06-11] MEDS: risperiDONE 0.5 MG TAB PO SCH (05:47)
[2022-06-11] MEDS: VERAPAMIL 40 MG TAB PO SCH ×2 (05:47→16:36)
--- NOTE | 2022-06-11 08:13 | XR ---
EXAMINATION TYPE: XR chest 1V portable DATE OF EXAM: 06/11/2022 5:01 AM COMPARISON: Chest radiograph 06/10/2022. TECHNIQUE: XR chest 1V portable Portable AP radiograph of the chest. CLINICAL INDICATION:Female, 57 years old with history of shortness of breath, pneumonia; FINDINGS: Patient is rotated which limits evaluation. Lungs/Pleura: No pneumothorax or pleural effusions. Unchanged left present right mid lung and bibasil ar airspace opacities. Pulmonary vascularity: Continued pulmonary vascular congestion. Heart/mediastinum: Stable cardiomegaly. Musculoskeletal: No acute osseous pathology. IMPRESSION: Unchanged left greater than right lung airspace opacities.
[2022-06-11 10:47] LABS: Basophils # (A) 0.02 X 10*3/uL (0.00-0.10); Basophils % (A) 0.4 %; Eosinophils # (A) 0.19 X 10*3/uL (0.04-0.35); Eosinophils % (A) 4.3 %; HCT 37.4 % (37.2-46.3); HGB 11.7 g/dL (12.0-15.0); Immature Grans, Automated 0.2 %; Lymphocytes # (A) 0.94 X 10*3/uL (0.90-5.00); Lymphocytes % (A) 21.1 %; MCH 27.7 pg (27.0-32.0); MCHC 31.3 g/dL (32.0-37.0); MCV 88.6 fL (80.0-97.0); Mean Platelet Volume 9.9 fL (9.5-12.2); Monocytes # (A) 0.36 X 10*3/uL (0.20-1.00); Monocytes % (A) 8.1 %; NRBC Per 100 WBC 0 /100 WBCS (0.0-0.0); Neutrophils # (A) 2.93 X 10*3/uL (1.80-7.70); Neutrophils % (A) 65.9 %; Platelet Count 173 X 10*3/uL (140-440); RBC 4.22 X 10*6/uL (4.10-5.20); RDW 13.6 % (11.5-14.5); WBC 4.45 X 10*3/uL (4.50-10.00)
[2022-06-11 11:09] LABS: African American GFR (CKD) 120.3 (60.0-200.0); BUN/Creat Ratio 29.83 Ratio (12.00-20.00); Blood Urea Nitrogen 17.3 mg/dL (9.0-27.0); Calcium 9.5 mg/dL (8.7-10.3); Carbon Dioxide 23.5 mmol/L (20.0-27.5); Non-African American GFR(CKD) 103.8 (60.0-200.0); Potassium 4.5 mmol/L (3.5-5.5)
--- NOTE | 2022-06-11 11:16 | P.PN ---
Subjective Progress Note Date: 06/11/22 Principal diagnosis: Suspected aspiration pneumonia 56 year old female patient, with chronic developmental delay, resident of a local long term who is a poor historian, was brought into the emergency department on 06/06/2022 by ambulance for evaluation of worsening shortness of breath. Patient is nonverbal, and there is limited history available to us. Time of onset of symptoms is unclear, in the emergency department she has a low- grade fever with a temp of 99F, she is currently requiring 6 L of oxygen and she is satting 93-94%, blood pressure is 93/63, slightly congested, but appears to be in no acute distress, chest x-ray showed new left mid and lower lung acute infiltrate and right basilar Infiltrate. EKG showed sinus tachycardia. COVID- 19 and influenza A and B were negative. CBC showed normal white count of 5.5, hemoglobin 13.0, coagulation profile was unremarkable, sodium was 135, and a breast reduction lites and renal profile were within normal limits. LFTs were within normal limits, troponin was negative at less than 0.012. Initial antibiotic coverage was switched with azithromycin and Rocephin in the emergency department however was later switched to Zosyn and vancomycin for possibility of aspiration related pneumonia or healthcare acquired pneumonia. On 06/07/2022 patient is seen in follow-up on medical surgical floor. She is awake and alert, on 5 L of oxygen her pulse ox is 96-97%, does not appear to be in any acute distress. Patient continues on Zosyn and vancomycin for possibility of aspiration versus healthcare acquired pneumonia, vital signs have been stable overnight. Afebrile, blood pressure is on the lower side, 99/71, wi th a mean of 80. No tachycardia, no fever or chills. Chest x-ray today showing persistent left greater than right mid and lower lung acute infiltrate and/or edema with tiny right pleural effusion. Echocardiogram is pending. Today's labs have been reviewed, white blood cell count is 5.9, hemoglobin is 11.7. On 06/08/2022 patient seen in follow-up on medical surgical floor. She is awake and alert, she is looking around, but she is nonverbal, does not follow command, but appears to be in no acute distress, she is off of his oxygen satting 96%. Respirations are nonlabored. She's been afebrile. Blood pressures are stable. She remains on Zosyn and vancomycin for empiric antibiotic coverage, yesterday's chest x-ray shows persistent left greater than right mid and lower lung infiltrates with tiny right pleural effusion. Echocardiogram is still pending, pro-calcitonin level has been ordered and pending. Patient is suspected to be aspirating intermittently although clinically nursing staff reports no episodes of coughing or choking on food however patient eats fast. Speech therapy has been consulted for evaluation, in the meantime patient remains nothing by mouth. On 06/09/2022 patient seen in follow-up on medical surgical floor. Patient was seen by speech therapist and passed her bedside swallow evaluation. She's been cleared for oral feedings with the recommendation of providing the patient a smaller spoon. She is currently on 2 L of oxygen pulse ox 95%, she is afebrile, doesn't appear to be in any respiratory distress, echocardiogram has been completed showing preserved EF of 55-60% was a limited study as the patient was combative at the time. Moderate right ventricular dilatation, right ventricular systolic pressure was within normal limits, the conclusion was normal size and systolic function, mild MR, with mitral valve prolapse. Clinically patient is s table, her appetite is excellent. No acute events overnight. We'll obtain follow-up chest x-ray today, today's labs have also been reviewed On 06/10/2022 patient seen in follow-up on medical surgical floor. She is resting comfortably in bed, she is currently on 2 L of oxygen satting 95%, does not appear to be in any acute distress, no signs of any respiratory difficulty, breathing comfortably, she has had no fever or chills, vital signs have been stable. No acute events overnight, follow-up chest x-rays pending for today. She has been treated with Zosyn and vancomycin, vancomycin has been discontinued couple days ago, there has been no growth on the cultures. Patient has been transitioned to oral antibiotics yesterday, today's labs are still pending, yesterday's labs showed normal white count, hemoglobin of 10.8, electrolytes and renal profile were unremarkable, patient passed swallow evaluation, clinically has been stable, her appetite is excellent, no nausea vomiting or diarrhea. She is anticipated for possible discharge back to her long term today The patient is seen today 06/11/2022 in follow-up on the regular medical floor. She is currently awake and alert. Resting comfortably in bed. She is maintaining good O2 saturations in the 90s on 2 L/m per nasal cannula. X-ray reveals right midlung in the basilar airspace opacities. No significant change. Blood cultures revealed no growth. White count 4.45. Hemoglobin 11.7. Sodium 141. Potassium 4.5. BUN 17. Creatinine 0.6. She remains on a dysphagia 1/thin liquid diet with one-to-one supervision. No overt aspiration/penetration exhibited during swallow evaluation. She is continued on Augmentin. Antic oagulated with Eliquis. Objective - Vital Signs Vital signs: Vital Signs Temp 97.9 F 06/11/22 08:00 Pulse 81 06/11/22 08:00 Resp 14 06/11/22 08:00 BP 102/66 06/11/22 08:00 Pulse Ox 91 L 06/11/22 08:00 FiO2 Intake & Output 06/10/22 06/11/22 06/11/22 18:59 06:59 18:59 Intake Total 600 Output Total 300 900 Balance 300 -900 Intake: Oral 600 Output: Urine 300 900 Other: # Voids 1 2 # Bowel Movements 1 - Exam GENERAL EXAM: Alert, 56-year-old female patient on 2 L of oxygen, she is nonverbal, does not appear to be in any acute distress HEAD: Normocephalic/atraumatic. EYES: Normal reaction of pupils, equal size. Conjunctiva pink, sclera white. NOSE: Clear with pink turbinates. THROAT: No erythema or exudates. NECK: No masses, no JVD, no thyroid enlargement, no adenopathy. CHEST: No chest wall deformity. Symmetrical expansion. LUNGS: Equal air entry with mild basilar crackles CVS: Regular rate and rhythm, normal S1 and S2, no gallops, no murmurs, no rubs ABDOMEN: Soft, nontender. No hepatosplenomegaly, normal bowel sounds, no guarding or rigidity. EXTREMITIES: No clubbing, no edema, no cyanosis, 2+ pulses and upper and lower extremities. MUSCULOSKELETAL: Muscle strength and tone normal. SPINE: No scoliosis or deformity SKIN: No rashes CENTRAL NERVOUS SYSTEM: Alert, but unable to assess orientation. No focal deficits, tone is normal in all 4 extremities. - Labs CBC & Chem 7: 07/14/22 07:10 06/11/22 07:10 Labs: Abnormal Lab Results - Last 24 Hours (Table) 06/11/22 06/11/22 Range/Units 07:10 07:10 WBC 4.45 L (4.50-10.00) X 10*3/uL Hgb 11.7 L (12.0-15.0) g/dL MCHC 31.3 L (32.0-37.0) g/dL BUN/Creatinine Ratio 29.83 H (12.00-20.00) Ratio Microbiology - Last 24 Hours (Table) 06/06/22 09:45 Blood Culture - Preliminary Blood No Growth after 96 hours 06/06/22 10:00 Blood Culture - Preliminary Blood No Growth after 96 hours Assessment and Plan Assessment: 1 Acute hypoxic respiratory failure related to suspected acute aspiration versus healthcare acquired pneumonia. COVID-19 PCR, influenza A and B were negative 2 Chronic developmental delay, patient is nonverbal 3 Chronic psychiatric history 4 History of CVA with right-sided weakness 5 History of COVID 19 in October 2021 6 Chronic constipation 7 Severe pulmonary hypertension with RVSP of 60 mmHg on echocardiogram from November 2021 Plan: The patient was seen and evaluated Chest x-ray and labs reviewed Evaluate for possible home oxygen Cleared for discharge from the pulmonary standpoint Continue aspiration precautions Complete a course of antibiotics in the form of Augmentin I have personally seen and examined the patient, performed the documentation and the assessment and plan as written. Number of minutes spent on the visit: 10.
[2022-06-11 14:06] VITALS: BMI 19.5
--- NOTE | 2022-06-11 14:26 | P.DS ---
Providers Date of admission: 06/06/22 11:09 Expected date of discharge: 06/11/22 Attending physician: Staci Rios DO Consults: 06/06/22 11:08 Consult Physician Routine Consulting Provider: Brittany Hauser Consult Reason/Comments: Multi-lobular pneumonia, sepsis Do you want consulting provider notified?: Yes Primary care physician: Jenelle Forrest Hospital Course: Discharge Diagnosis: Acute respiratory failure with hypoxia secondary to pneumonia, believed to be aspiration pneumonia. Patient underwent a 5 day course of IV antibiotics of vancomycin and Zosyn and being discharged home on an additional 5 day course of oral antibiotics, Augmentin. Patient discharge instructions include aspiration instructions along with pured diet and strict one-to-one feedings with head of bed elevated at all times to prevent aspiration. 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 Continue Plavix and Eliquis History of Physical and developmental disability and psychiatric disorders Severe pulmonary hypertension History of psychiatric disorders. Continue daily medication regimen with Klonopin, Prozac, Risperdal, Hyperlipidemia. Continue daily medication regimen with atorvastatin. Hospital Course: Patient is a very pleasant 56-year-old female with a past medical history significant for physical and developmental disabilities and is nonverbal at baseline residing in a [facility], psychiatric disorders, dyslipidemia, severe pulmonary hypertension, PFO with [id number] shunting on anticoagulation with Eliquis as patient is not a candidate for surgical closure, history of thrombotic CVA of left middle cerebral artery resulting in right-sided deficits, and recent Covid infection in November 2021. Patient presented to the emergency department from [facility] with a chief complaint of respiratory difficulties. Information obtained from clinical findings, ED documentation and nursing staff as attempts were made at contacting patient's family unsuccessful and patient is nonverbal at baseline and unable to follow commands. It is unclear when onset of respiratory difficulties began or if they have been accompanied by any associated symptoms. Upon arrival to the emergency department patient was found to be hypoxic requiring oxygen supplementation and was placed on 6 L O2 via nasal cannula and SpO2 increased to 93%. In addition patient had a low-grade temp of 99.5 axillary, tachycardic at 101 bpm, tachypneic with respiratory rate of 24, and hypotensive with blood pressure of 97/62. Chest x-ray was completed showing new left mid and lower lung acute infiltrates in right basilar acute infiltrate and/or atelectasis. EKG revealed sinus tachycardia at 101 bpm with a right bundle branch block. CBC unremarkable with the exception of mild thrombocytopenia with platelet count of 145. Coags normal findings. VBG showing no significant abnormalities. CMP revealing hyponatremia with sodium of 135 and slightly elevated total bili of 1.6. Urinalysis was negative for infection. Covid PCR, influenza a, and influenza B were negative. Patient was started on IV antibiotics vancomycin and Zosyn and admitted under our services with consultation to pulmonology and speech and language pathologist. Patient was treated for aspiration pneumonia. Echocardiogram completed revealing normal EF of 55-60% with moderate right ventricular dilation, however study was limited secondary to patient becoming combative. After 5 day hospitalization with treatment with IV antibiotics, patient's condition improved. She was weaned from oxygen. Ambulatory pulse ox was completed patient maintained SpO2 of 95% on room air with ambulation. Patient is medically stable for discharge back to [facility] at this time. Is being discharged home on an additional 5 day course of oral antibiotics with Augmentin to total a 10 day course of antibiotics for treatment of suspected aspiration pneumonia. Physical exam: Patient seen and fully evaluated at bedside this morning. She is awake and alert and doing well. Patient denied having any pain. Patient again give a thumbs up when asked how she was doing. Ambulatory pulse ox being completed. Patient medically stable at this time and plan is for discharge back to [facility]. Vital signs reviewed and stable. General: Nontoxic, no distress and appears stated age. Derm: Skin warm and dry, normal coloration for ethnicity. Head: Atraumatic, normocephalic and symmetric. Eyes: EOMs intact, no lid lag, and anicteric sclera Mouth: no lip lesions, mucus membranes moist Cardiovascular: regular rate and rhythm with normal S1S2, systolic murmur, positive posterior tibial pulses bilaterally, and cap refill < 2 seconds. Lungs: Respirations even, regular, and unlabored on room air. Lungs slightly diminished otherwise clear to auscultation bilaterally with no rhonchi, no rales, and no wheezing noted. Patient had no accessory muscle usage. Abdominal: soft, nontender to palpation, no guarding, no appreciable organomegaly Ext: ROM intact. Patient bedridden but moving all extremities independently with no noted difficulties at this time. Patient does have right lower extremity deformity. Neuro: Speech clear, face symmetrical and CN II-XII grossly intact with no noted focal neuro deficits Psych: Patient is nonverbal. A total of 35 minutes of time were spent preparing this complex discharge summary. Pt was discharged on 06/11/22 at 2:08 PM. Patient Condition at Discharge: Stable Plan - Discharge Summary Discharge Rx Participant: No New Discharge Prescriptions: New Amoxic-Pot Clav 875-125Mg [Augmentin 875-125] 1 each PO Q12HR 5 Days #10 tab Continue Atorvastatin Calcium [Lipitor] 20 mg PO HS@1999 clonazePAM 0.5 mg PO TID@0600,1500,1999 polyethylene glycoL 3350 [Miralax] 17 gm PO HS@1999 risperiDONE [RisperDAL] 3 mg PO HS@1999 Clopidogrel [Plavix] 75 mg PO DAILY@0600 FLUoxetine HCL [PROzac] 40 mg PO DAILY@0700 risperiDONE [RisperDAL] 1.5 mg PO DAILY@0600 Clotrimazole/Betameth Cream [Lotrisone] 1 applic TOPICAL DAILY Ammonium Lactate Lotion [Lac-Hydrin 12% Lotion] 1 applic TOPICAL DAILY Verapamil [Isoptin] 40 mg PO BID@0600,1700 Apixaban [Eliquis] 5 mg PO BID@0600,1700 Discharge Medication List Atorvastatin Calcium [Lipitor] 20 mg PO HS@199912/07/21 [History] FLUoxetine HCL [PROzac] 40 mg PO DAILY@0700 12/07/21 [History] clonazePAM 0.5 mg PO TID@0600,1500,199912/07/21 [History] polyethylene glycoL 3350 [Miralax] 17 gm PO HS@199912/07/21 [History] risperiDONE [RisperDAL] 1.5 mg PO DAILY@0600 12/07/21 [History] risperiDONE [RisperDAL] 3 mg PO HS@199912/07/21 [History] Ammonium Lactate Lotion [Lac-Hydrin 12% Lotion] 1 applic TOPICAL DAILY 06/06/22 [History] Apixaban [Eliquis] 5 mg PO BID@0600,1700 06/06/22 [History] Clopidogrel [Plavix] 75 mg PO DAILY@0600 06/06/22 [History] Clotrimazole/Betameth Cream [Lotrisone] 1 applic TOPICAL DAILY 06/06/22 [History] Verapamil [Isoptin] 40 mg PO BID@0600,1700 06/06/22 [History] Amoxic-Pot Clav 875-125Mg [Augmentin 875-125] 1 each PO Q12HR 5 Days #10 tab 06/11/22 [Rx] Follow up Appointment(s)/Referral(s): Jenelle Forrest DO [Primary Care Provider] - 1-2 days Patient Instructions/Handouts: Complete Blenderized Diet (DC), Aspiration Pneumonia (DC) Activity/Diet/Wound Care/Special Instructions: Puree diet 1 on 1 feeding, small bites. Head of bed up at all times, aspiration precautions Discharge Disposition: TRANSFER TO SNF/ECF
[2022-06-11 16:16] VITALS: BP 104/64; PULSE 89; RESP 18; TEMP 98.8
== END 2022-06-11 17:02 | DRG 177 ==
LOC: EC 09:37 → 4SSUR 11:09
PROVIDERS: ADMIT Internal Medicine; ATTEND Internal Medicine
DX: J69.0 Pneumonitis due to inhalation of food and vomit (principal); J96.01 Acute respiratory failure with hypoxia; E87.1 Hypo-osmolality and hyponatremia; I69.351 Hemiplegia and hemiparesis following cerebral infarction affecting right dominant side; Q21.1 Atrial septal defect; Z20.822 Contact with and (suspected) exposure to COVID-19; D69.6 Thrombocytopenia, unspecified; E78.5 Hyperlipidemia, unspecified; I10 Essential (primary) hypertension; I34.1 Nonrheumatic mitral (valve) prolapse; I45.10 Unspecified right bundle-branch block; K59.09 Other constipation; I27.20 Pulmonary hypertension, unspecified; Z79.01 Long term (current) use of anticoagulants; Z79.02 Long term (current) use of antithrombotics/antiplatelets; Z79.899 Other long term (current) drug therapy; Z86.16 Personal history of COVID-19
CPT/HCPCS: 36415; 71045; 71046; 80048; 80053; 80202; 81003; 82803; 83605; 83735; 83880; 84484; 85025; 85027; 85610; 85730; 87040; 87502; 87635; 93005; 93308; 94760; 96365; 96374; 96375; 99291